=== PATIENT | male | born 1955 | race Caucasian/White ===

== ENCOUNTER 2019-12-14 14:11 | Emergency (ER) | payer OTHER ==
[2019-12-14 14:48] LABS: Absolute Lymphocytes (CBC) 1.1 K/uL (0.7-4.9); Basophils % 0.9 % (0-1.3); Hematocrit 45.7 % (39.6-49.0); MPV 8.6 fL (7.6-11.3)
[2019-12-14] MEDS ORDERED: NA CHLORIDE 0.9% 500 ML ONE (14:50)
[2019-12-14] MEDS ORDERED: ONDANSETRON 4 MG/2 ML VIAL ONE (14:50)
[2019-12-14] MEDS ORDERED: MECLIZINE HCL 12.5 MG TAB ONE (14:50)
[2019-12-14 15:10] LABS: BUN Blood Urea Nitrogen 11 mg/dL (7-18); Bicarbonate 26 mmol/L (21-32); Glucose Level 359 mg/dL (74-106); Sodium Level 137 mmol/L (136-145); Troponin (Emerg Dept Use Only) < 0.02 ng/mL (0.0-0.045)
--- NOTE | 2019-12-14 15:40 | RAD REPORT ---
EXAM DESCRIPTION: CT - Head Brain Wo Cont - 12/14/2019 3:07 pm CLINICAL HISTORY: DIZZINESS COMPARISON: No comparisons TECHNIQUE: Axial 5 mm thick images of the head were obtained without IV contrast. All CT scans are performed using dose optimization technique as appropriate and may include automated exposure control or mA/KV adjustment according to patient size. FINDINGS: No intracranial hemorrhage, mass, edema or shift of mid-line structures. No acute infarcti on changes seen. No cortical edema or sulcal effacement. Atrophy changes and chronic ischemic changes are minimal. Ventricles are normal. Arterial and physiologic calcifications are present. Mastoid air cells and visualized portions of the paranasal sinuses are clear. No acute bony findings. IMPRESSION: Negative non-contrast CT head examination for acute finding. Minimal atrophy and chronic ischemic change.
--- NOTE | 2019-12-14 16:20 | RAD REPORT ---
EXAM DESCRIPTION: CT - Neck Angio - 12/14/2019 3:52 pm CLINICAL HISTORY: dizziness TECHNIQUE: During dynamic enhancement using nonionic IV contrast, axial 2 mm thick images of the nec k were obtained. Sagittal and axial reconstruction images were generated using MIP technique and revi ewed. All CT scans are performed using dose optimization technique as appropriate and may include automated exposure control or mA/KV adjustment according to patient size. COMPARISON: CT head same date, CT angio head same date FINDINGS: No aneurysm or vascular malformation identified. No carotid artery dissection or signific ant luminal narrowing identified. Prominent carotid bulb calcifications are present without a signifi cant narrowing of the vessel lumen. Right vertebral artery is dominant with no dissection. The left vertebral artery is the nondominant vessel. This small size continues from origin to the C1 level. From the C1 transverse foramen to the skullbase wall of the vessel is thickened compared to th e right. This can be evidence for wall hematoma. From the skullbase to the base of the basilar artery the left vertebral artery is small and irregular. Termination at the posterior inferior cerebellar a rtery is possible. The wall changes of the distal vertebral artery are suspicious for dissection. No aortic arch or great vessel origin abnormality seen. No basilar artery abnormality seen. IMPRESSION: Suspected dissection of the distal left vertebral artery between the C1 level and the b ase of the basilar artery.
--- NOTE | 2019-12-14 16:24 | RAD REPORT ---
EXAM DESCRIPTION: CT - Head angio - 12/14/2019 3:52 pm CLINICAL HISTORY: DIZZINESS, vomiting, ordered TECHNIQUE: During dynamic enhancement using nonionic IV contrast, axial 1 millimeter thick images of the head were obtained. Sagittal and axial reconstruction images were generated using MIP technique and reviewed. All CT scans are performed using dose optimization technique as appropriate and may include automated exposure control or mA/KV adjustment according to patient size. COMPARISON: CT head same date FINDINGS: No aneurysm or vascular malformation identified. Major venous sinuses are patent. No stenosis, named branch occlusion, vasculitis or other significant carotid artery finding identifia ble. Both posterior communicating arteries are present as a normal variant. Carotid calcifications ar e present at bulb. This does not cause significant luminal narrowing. Left vertebral artery is narrowed along its entire course. This is the nondominant vessel. No right v ertebral artery dissection or focal abnormality. From the C1 level to the skullbase the left vertebra l artery wall is thickened which can be evidence of hematoma from dissection. Left vertebral artery i s poorly visualized between the skullbase and the base of the basilar artery. Left vertebral artery m ay terminate at the posterior inferior cerebellar artery. IMPRESSION: Thickened wall of the distal left vertebral artery suspicious for dissection.
--- NOTE | 2019-12-14 16:51 | ER ---
Nurse's Notes [facility] Name: Galdino Flores Age: 64 yrs Sex: Male : 1955 Arrival Date: 12/14/2019 Time: 14:13 Bed 7 Private MD: Srini Elizondo V Diagnosis: Vertigo;Vertebral Artery Dissection Presentation: 12/13 14:24 Chief complaint: Patient states: Brief episode of vomiting yesterday. Today, N/V ca1 started at 0700 and hasn't eased up. Haven't eaten anything today and now mostly dry heaving. Denies abdominal pain. Denies diarrhea. Coronavirus screen: Proceed with normal triage. Patient denies a cough. Patient denies shortness of breath or difficulty breathing. Patient denies measured and/or subjective temperature greater than 100.4F prior to today's visit. Patient denies travel on a cruise ship or to a country the [facility] currently lists as an affected area. Patient denies contact with known and/or suspected case of COVID-19. Ebola Screen: Patient negative for fever greater than or equal to 101.5 degrees Fahrenheit, and additional compatible Ebola Virus Disease symptoms Patient denies exposure to infectious person. Patient denies travel to an Ebola-affected area in the 21 days before illness onset. No symptoms or risks identified at this time. Initial Sepsis Screen: Does the patient meet any 2 criteria? No. Patient's initial sepsis screen is negative. Does the patient have a suspected source of infection? No. Patient's initial sepsis screen is negative. Risk Assessment: Do you want to hurt yourself or someone else? Patient reports no desire to harm self or others. Onset of symptoms was December 14, 2019 at 07:00. 14:24 Method Of Arrival: Wheelchair ca1 14:24 Acuity: GABY 3 ca1 Historical: - Allergies: 14:27 No Known Allergies; ca1 - PMHx: 14:27 Anxiety; DEAF ON LEFT; Diabetes - NIDDM; GERD; High Cholesterol; Hypertension; ca1 psoriatic spondylitis; - PSHx: 14:27 Hernia repair; LEFT EAR DRUM SURG; ca1 - Immunization history:: Adult Immunizations up to date, Pneumococcal vaccine is not up to date, Flu vaccine is up to date. - Social history:: Smoking status: Patient denies any tobacco usage or history of. - Family history:: not pertinent. - Hospitalizations: : No recent hospitalization is reported. Screenin:27 Abuse screen: Denies threats or abuse. Denies injuries from another. Nutritional ca1 screening: No deficits noted. Tuberculosis screening: No symptoms or risk factors identified. Fall Risk IV access (20 points). Assessment: 14:27 General: Appears in no apparent distress. comfortable, Behavior is calm, cooperative, ca1 appropriate for age. Pain: Denies pain. Neuro: Level of Consciousness is awake, alert, obeys commands, Oriented to person, place, time, situation, Appropriate for age Reports dizziness, since yesterday. Cardiovascular: Heart tones S1 S2 present Capillary refill < 3 seconds Patient's skin is warm and dry. Respiratory: Airway is patent Respiratory effort is even, unlabored, Respiratory pattern is regular, symmetrical, Breath sounds are clear bilaterally. GI: Abdomen is round obese, Bowel sounds present X 4 quads. Abd is soft and non tender X 4 quads. Reports nausea, vomiting, since this morning at 0700. : No signs and/or symptoms were reported regarding the genitourinary system. EENT: No signs and/or symptoms were reported regarding the EENT system. Derm: Skin is intact, is healthy with good turgor, Skin is moist, Skin is pink, Skin temperature is warm. Musculoskeletal: Circulation, motion, and sensation intact. Capillary refill < 3 seconds. 15:47 Reassessment: Pt in CT. ca1 16:04 Reassessment: [phone]. ca1 16:06 Reassessment: Patient appears in no apparent distress at this time. Patient and/or ca1 family updated on plan of care and expected duration. Pain level reassessed. Patient is alert, oriented x 3, equal unlabored respirations, skin warm/dry/pink. Denies N/V at this time states, "but still a little dizzy" Patient states feeling better. 16:25 Reassessment: Dr. Asher at bedside discussing result of CT neck and plan of care. ca1 16:53 Reassessment: Patient appears in no apparent distress at this time. Patient is alert, ca1 oriented x 3, equal unlabored respirations, skin warm/dry/pink. 17:31 Reassessment: Patient appears in no apparent distress at this time. Patient is alert, ca1 oriented x 3, equal unlabored respirations, skin warm/dry/pink. Called for report. Report given to RALPH Navarro at [facility]. Vital Signs: 14:24 BP 165 / 79; Pulse 67; Resp 17 S; Temp 97.5(O); Pulse Ox 96% on R/A; Weight 115.67 kg ca1 (R); Height 5 ft. 9 in. (175.26 cm) (R); Pain 0/10; 16:08 BP 143 / 82; Pulse 63; Resp 17 S; Pulse Ox 96% on R/A; ca1 16:53 BP 134 / 76; Pulse 61; Resp 16; Pulse Ox 97% on R/A; ca1 17:31 BP 142 / 76; Pulse 63; Resp 18 S; Pulse Ox 96% on R/A; ca1 14:24 Body Mass Index 37.66 (115.67 kg, 175.26 cm) ca1 ED Course: 14:13 Patient arrived in ED. ag5 14:13 Srini Elizondo MD is Private Physician. ag5 14:20 Meño Asher MD is Attending Physician. rn 14:24 Chantal Rudd RN is Primary Nurse. ca1 14:25 Patient has correct armband on for positive identification. Bed in low position. Call jp3 light in reach. Side rails up X 1. Side rails up X2. Verbal reassurance given. Pulse ox on. NIBP on. 14:25 Patient maintains SpO2 saturation greater than 95% on room air. jp3 14:26 Triage completed. ca1 14:27 Arm band placed on right wrist. ca1 14:27 No provider procedures requiring assistance completed. ca1 14:41 Initial lab(s) drawn, by me, sent to lab. Inserted saline lock: 20 gauge in right ca1 antecubital area, using aseptic technique. Blood collected. 14:54 EKG done, by ED staff, reviewed by Meño Asher MD. ca1 15:07 CT completed. Patient tolerated procedure well. Patient moved back from CT. mw3 15:07 CT Head Brain wo Cont In Process Unspecified. EDMS 15:52 CT Head Angio In Process Unspecified. EDMS 15:53 CT Neck Angio In Process Unspecified. EDMS 15:53 CT completed. Patient tolerated procedure well. Patient moved back from CT. bq 17:54 Patient transferred, IV remains in place. ca1 Administered Medications: 14:45 Drug: NS 0.9% 500 ml Route: IV; Rate: bolus; Site: right antecubital; ca1 15:15 Follow up: Response: No adverse reaction; IV Status: Completed infusion ca1 14:46 Drug: Zofran (Ondansetron) 4 mg Route: IVP; Site: right antecubital; ca1 15:30 Follow up: Response: No adverse reaction; Nausea is decreased; Vomiting decreased ca1 14:54 Drug: Meclizine 50 mg Route: PO; ca1 15:30 Follow up: Response: No adverse reaction; Marked relief of symptoms ca1 16:51 Drug: Aspirin 325 mg Route: PO; ca1 17:33 Follow up: Response: No adverse reaction ca1 Outcome: 16:50 ER care complete, transfer ordered by . rn 17:54 Transferred by ground EMS to [facility]. ca1 17:54 Condition: stable 17:54 Instructed on the need for transfer. 18:04 Patient left the ED. ca1 Signatures: Dispatcher [employer] EDMS Monica Hartmann Roman, MD MD rn Willis, Michelle mw3 Austyn Culver jp3 Chanatl Rudd RN RN ca1 Humza, Sophie ag5 Corrections: (The following items were deleted from the chart) 14:29 14:27 Neuro: Level of Consciousness is awake, alert, obeys commands, Oriented to ca1 person, place, time, situation, Appropriate for age ca1 15:43 15:42 Reassessment: Patient appears in no apparent distress at this time. Patient ca1 and/or family updated on plan of care and expected duration. Pain level reassessed. Patient is alert, oriented x 3, equal unlabored respirations, skin warm/dry/pink. ca1
--- NOTE | 2019-12-14 16:51 | EDPHYS ---
Physician Documentation [facility] Name: Galdino Flores Age: 64 yrs Sex: Male : 1955 Arrival Date: 12/14/2019 Time: 14:13 Bed 7 Private MD: Srini Elizondo V ED Physician Mñeo Asehr HPI: 12/13 15:05 This 64 yrs old Male presents to ER via Wheelchair with complaints of rn Vertigo, Nausea. 15:05 The patient presents with dizziness, vertigo. Onset: The symptoms/episode rn began/occurred yesterday. Modifying factors: The symptoms are alleviated by nothing, the symptoms are aggravated by movement of head, standing up. Severity of symptoms: At their worst the symptoms were moderate in the emergency department the symptoms are unchanged. The patient has not experienced similar symptoms in the past. The patient has not recently seen a physician. Reports dizziness began yesterday morning, felt better, happened again this morning around 0700. Worse with head movement, assoc with nausea, has never happened before. No other neurological complaints. No chest pain, sob/abd pain/diarrhea. . Historical: - Allergies: 14:27 No Known Allergies; ca1 - PMHx: 14:27 Anxiety; DEAF ON LEFT; Diabetes - NIDDM; GERD; High Cholesterol; Hypertension; ca1 psoriatic spondylitis; - PSHx: 14:27 Hernia repair; LEFT EAR DRUM SURG; ca1 - Immunization history:: Adult Immunizations up to date, Pneumococcal vaccine is not up to date, Flu vaccine is up to date. - Social history:: Smoking status: Patient denies any tobacco usage or history of. - Family history:: not pertinent. - Hospitalizations: : No recent hospitalization is reported. ROS: 15:05 Constitutional: Negative for fever, chills, and weight loss, Eyes: Negative for injury, rn pain, redness, and discharge, Neck: Negative for injury, pain, and swelling, Cardiovascular: Negative for chest pain, palpitations, and edema, Respiratory: Negative for shortness of breath, cough, wheezing, and pleuritic chest pain, Abdomen/GI: Negative for abdominal pain, diarrhea, and constipation, MS/Extremity: Negative for injury and deformity, Skin: Negative for injury, rash, and discoloration, Neuro: Negative for headache, numbness, tingling, and seizure. Exam: 14:54 ECG was reviewed by the Attending Physician. rn 15:05 Constitutional: This is a well developed, well nourished patient who is awake, alert, rn eyes closed, laying still Head/Face: Normocephalic, atraumatic. Eyes: Pupils equal round and reactive to light, extra-ocular motions intact. Lids and lashes normal. Conjunctiva and sclera are non-icteric and not injected. Cornea within normal limits. Periorbital areas with no swelling, redness, or edema. ENT: MMM Cardiovascular: Regular rate and rhythm. No pulse deficits. Respiratory: No increased work of breathing, no retractions or nasal flaring. Abdomen/GI: soft, non-tender MS/ Extremity: Pulses equal, no cyanosis. Neurovascular intact. Full, normal range of motion. Equal circumference. Neuro: Awake and alert, GCS 15, oriented to person, place, time, and situation. Cranial nerves II-XII grossly intact. Motor strength 5/5 in all extremities. Sensory grossly intact. Cerebellar exam normal. Vital Signs: 14:24 BP 165 / 79; Pulse 67; Resp 17 S; Temp 97.5(O); Pulse Ox 96% on R/A; Weight 115.67 kg ca1 (R); Height 5 ft. 9 in. (175.26 cm) (R); Pain 0/10; 16:08 BP 143 / 82; Pulse 63; Resp 17 S; Pulse Ox 96% on R/A; ca1 16:53 BP 134 / 76; Pulse 61; Resp 16; Pulse Ox 97% on R/A; ca1 17:31 BP 142 / 76; Pulse 63; Resp 18 S; Pulse Ox 96% on R/A; ca1 14:24 Body Mass Index 37.66 (115.67 kg, 175.26 cm) ca1 MDM: 14:20 Patient medically screened. rn 16:46 Differential diagnosis: cardiac arrhythmia, TIA, vertigo, vertebral dissection, rn aneurysm, SAH. Data reviewed: vital signs, nurses notes, lab test result(s), EKG, radiologic studies, CT scan, and as a result, I will admit patient. Counseling: I had a detailed discussion with the patient and/or guardian regarding: the historical points, exam findings, and any diagnostic results supporting the discharge/admit diagnosis, lab results, radiology results, the need to transfer to another facility, for higher level of care, [facility] does not immediately have the required specialist. Response to treatment: the patient's symptoms have mildly improved after treatment, and as a result, I will admit patient. Admission orders: after a detailed discussion of the patient's condition and case, the admit orders are written by me. ED course: Accepted for transfer to [facility] in [place] for neuro consult, MRI/MRA, spoke with Dr. Corado who recommends aspirin for now and they will eval for further need of stronger anticoagulation.. 12/13 14:38 Order name: CBC with Diff; Complete Time: 15:14 rn 12/13 14:38 Order name: Basic Metabolic Panel; Complete Time: 15:14 rn 12/13 14:38 Order name: Troponin (emerg Dept Use Only); Complete Time: 15:14 rn 12/13 14:38 Order name: CT Head Brain wo Cont; Complete Time: 16:02 rn 12/13 15:26 Order name: CT Head Angio; Complete Time: 16:30 rn 12/13 15:26 Order name: CT Neck Angio; Complete Time: 16:30 rn 12/13 14:38 Order name: IV Start; Complete Time: 14:42 rn 12/13 14:38 Order name: EKG; Complete Time: 14:39 rn 12/13 14:38 Order name: EKG - Nurse/Tech; Complete Time: 14:54 rn EC:54 Rate is 59 beats/min. Rhythm is regular. QRS Nathalie is Normal. MN interval is normal. QRS rn interval is normal. QT interval is normal. No Q waves. T waves are Normal. No ST changes noted. Clinical impression: Sinus bradycardia. Interpreted by me. Reviewed by me. Administered Medications: 14:45 Drug: NS 0.9% 500 ml Route: IV; Rate: bolus; Site: right antecubital; ca1 15:15 Follow up: Response: No adverse reaction; IV Status: Completed infusion ca1 14:46 Drug: Zofran (Ondansetron) 4 mg Route: IVP; Site: right antecubital; ca1 15:30 Follow up: Response: No adverse reaction; Nausea is decreased; Vomiting decreased ca1 14:54 Drug: Meclizine 50 mg Route: PO; ca1 15:30 Follow up: Response: No adverse reaction; Marked relief of symptoms ca1 16:51 Drug: Aspirin 325 mg Route: PO; ca1 17:33 Follow up: Response: No adverse reaction ca1 Disposition: 12/14/19 16:50 Transfer ordered to [facility]. Diagnosis are Vertigo, Vertebral Artery Dissection. - Reason for transfer: Higher level of care. - Accepting physician is Dr. Hyde. - Condition is Stable. - Problem is new. - Symptoms have improved. Signatures: Dispatcher [employer] EDMS Meño Asher MD MD rn AcobChantal RN RN ca1 Corrections: (The following items were deleted from the chart) 16:54 16:50 12/14/2019 16:50 Transfer ordered to [facility]. rn Diagnosis is Vertigo; Vertebral Artery Dissection. Reason for transfer: Higher level of care. Accepting physician is . Condition is Stable. Problem is new. Symptoms have improved. rn 18:04 16:54 12/14/2019 16:50 Transfer ordered to [facility]. ca1 Diagnosis is Vertigo; Vertebral Artery Dissection. Reason for transfer: Higher level of care. Accepting physician is Dr. Hyde. Condition is Stable. Problem is new. Symptoms have improved. rn
[2019-12-14] MEDS ORDERED: ASPIRIN 325 MG TAB ONE (16:55)
[2019-12-14 18:10] VITALS: TEMP 97.5
[2019-12-14 18:14] VITALS: BP 142/76; O2SAT 96
--- NOTE | 2019-12-15 16:24 | EKG ---
Test Date: 2019-12-14 Test Time: 14:49:10 [employer] Milling Machine Operator: MARAH MEASUREMENT RESULTS: Intervals: Rate: 59 NM: 208 QRSD: 100 QT: 464 QTc: 459 [place]: P: 46 NM: 208 QRS: 33 T: 18 INTERPRETIVE STATEMENTS: Sinus bradycardia Otherwise normal ECG Compared to ECG 06/04/2016 10:23:41 No significant changes Electronically Signed On 12-15-19 16:22:27 CDT by Joel Agarwal
== END 2019-12-14 18:04 | disposition short-term general hospital (02) ==
LOC: ER 14:11
DX: I77.74 Dissection of vertebral artery (principal); R11.0 Nausea; I10 Essential (primary) hypertension
CPT/HCPCS: 93005; 85025; 80048; 36415; 84484; 70450; 70496; 70498; Q9967; J7040; J2405; 96374; 99285; J8597

== ENCOUNTER 2021-08-13 04:42 | Emergency (ER) | payer OTHER ==
--- OUTSIDE RECORDS SUMMARY | 2021-08-13 04:46 | XMS REPORT | Continuity of Care Document ---
:1955 Author Organization [facility] t Address [address] [place] [address] Care Team Providers Name Role Phone Mikhail White Primary Care Physician Erica ANGELO Attending Clinician Unavailable Erica Angelo MD Attending Clinician Nils BROOKS Attending Clinician Unavailable Elizabeth CAI Attending Clinician Unavailable Nils WU Admitting Clinician Unavailable Payers Payer Name Policy Type Policy Number Effective Date Expiration Date S ource Problems Condition Condition Condition Status Onset Resolution Last Treating Co mments Source Name Details Category Date Date Treatment Clinician Date No known No known Disease Unive rs active active ity of problems problems [facility] Allergies, Adverse Reactions, Alerts Allergy Allergy Status Severity Reaction(s) Onset Inactive Treating Comm ents Source Name Type Date Date Clinician NO KNOWN Allergy Active [facility] NO KNOWN Drug Active Univers ALLERGIE Class ity of S [place] [facility] [place] Social History Social Habit Start Date Stop Date Quantity Comments Source History SDOH University o f Alcohol Std [place] [facility] History SDOH University o f Alcohol Binge [place] [facility] History SDOH University o f Alcohol Comment [place] [facility] Exposure to Not sure University of SARS-CoV-2 [place] [facility] (event) Branch Alcohol intake 2021-03-21 2021-03-21 Lifetime University of 00:00:00 00:00:00 non-drinker [facility] (finding) Branch Tobacco use and 2020-12-01 2020-12-01 Never used Universit y of exposure 00:00:00 00:00:00 [place] [facility] History SDOH 2020-12-01 2020-12-01 1 University o f Alcohol Frequency 00:00:00 00:00:00 [facility] [place] Sex Ass[birth year] At [birth year] Universit y of 00:00:00 00:00:00 [facility] Smoking Status Start Date Stop Date Source Never smoker [facility] Medications Ordered Filled Start Stop Current Ordering Indication Dosage Frequency Signature Comments Components Source Medication Medication Date Date Medication? Clinician (SIG) Name Name apremilast Yes Take by Uni vers (OTEZLA) 30 6-11 mouth. ity of mg tablet 08:40: [place] 26 [facility] Branch sulfaSALAzi 0 Yes 500mg Take 500 U nivers ne 500 mg 6-11 mg by ity of EC tablet 08:38: mouth. [place] 53 Medical Branch LOVAZA, 0 Yes 1g Take 1 g Univer s omega-3-aci 6-11 by mouth. ity of d ethyl 08:38: [facility], 53 Medical gram Branch capsule lisinopriL Yes 40mg Take 40 mg U nivers 40 mg 6-11 by mouth. ity of tablet 08:38: [address] Branch hydrOXYchlo Yes Take by Un jose carlos roQUINE 200 6-11 mouth. ity of mg tablet 08:38: [address] Branch XARELTO 20 0 Yes Univers mg tablet 5-20 ity of 00:00: [place] 00 [facility] Branch Azelastine Yes Univers 205.5 mcg 5-20 ity of (0.15 %) 00:00: [place] nasal spray 00 [facility] Branch VASCEPA 1 Yes TAKE 2 Univer s gram 4-13 CAPSULES ity of capsule 00:00: TWICE A [place] DAY WITH Medical MEALS Branch amLODIPine 0 Yes 10mg Take 10 mg U nivers 10 mg 3-31 by mouth. ity of tablet 13:21: [place] 03 Medical Branch fenofibrate 2020-0 Yes 145mg Take 145 U nivers 145 mg 3-31 mg by ity of tablet 13:21: mouth. [place] [facility] metoprolol 0 Yes 200mg Take 200 Un jose carlos succinate 3-31 mg by ity of XL 200 mg 13:21: mouth. [place] 24 Medical tablet Branch SIMPONI 50 2020-0 Yes Univers mg/0.5 mL 3-29 ity of Syrg 00:00: 00 Medical Branch celecoxib Yes Univers 200 mg 3-25 ity of capsule 00:00: Medical Branch glimepiride Yes TAKE 1 Univ ers 4 mg tablet 3-09 TABLET BY ity of 00:00: MOUTH EVERY DAY. Medical STOP Branch JARDIANCE JANUMET Yes 1{tbl} Take 1 Univer s 50-1,000 mg 3-09 tablet by ity of per tablet 00:00: [place] (two[place] Medical times Branch daily with meals. tadalafiL Yes TAKE 1 Univer s 20 mg 3-09 TABLET BY ity of tablet 00:00: MOUTH EVERY DAY Medical NEEDED Branch rosuvastati Yes 40mg Take 40 mg Univers n 40 mg 4-20 by mouth. ity of tablet 00:00: [place] [facility] Vital Signs Vital Name Observation Time Observation Value Comments Source Systolic blood 2021-03-21 19:47:00 149 mm[Hg] Univer sity [facility] Diastolic blood 2021-03-21 19:47:00 79 mm[Hg] Unive rsity [facility] Heart rate 2021-03-21 19:47:00 77 /min [facility] Body height 2021-03-21 19:41:00 175.3 cm [facility] Body weight 2021-03-21 19:41:00 113.399 kg [facility] BMI 2021-03-21 19:41:00 36.92 kg/m2 [facility] Procedures This patient has no known procedures. Encounters Start End Encounter Admission Attending Care Care Encounter Source Date/Time Date/Time Type Type Clinicians Facility Department ID 2019-12-14 Inpatient SLE SLE [id number] SLE 19:05:00 [id number] 2021-03-21 2021-03-21 Outpatient PETEY [facility] [id number] Univers 15:45:00 15:45:00 LIVIER [id number] ity [facility] 2021-03-21 2021-03-21 Outpatient R PETEY [facility] [id number] Univers 15:45:00 15:45:00 LIVIER solis [facility] 2021-03-21 2021-03-21 [email or web address] [id number] [id number] Univers 14:39:52 15:06:43 Visit Livier Maldonado [facility] [id number] it y of SURGICAL [id number] Vinod as SPECIALTI [phone] Me dical ES 198 Branch WILLIS 2021-02-23 2021-02-23 Outpatient Genevieve BROOKS [facility] [id number] Univers 14:00:00 14:00:00 PANKAJ [id number] timur [facility] 2021-02-23 2021-02-23 Outpatient Genevieve BROOKS [facility] [id number] Univers 14:00:00 14:00:00 PANKAJ timur [facility] 2021-02-09 2021-02-09 [facility] [id number] Univers 00:00:00 00:00:00 LIVIER will [facility] 2021-02-04 2021-02-04 [facility] [id number] Univers 10:30:00 10:30:00 LIVIER [id number] [facility] 2021-02-04 2021-02-04 Outpatient R PETEY [facility] [id number] Univers 10:30:00 10:30:00 LIVIER orellanatimur [facility] 2020-12-16 2020-12-16 Outpatient PETEY [facility] [id number] Univers 09:45:00 09:45:00 LIVIER [id number] [facility] 2020-12-16 2020-12-16 Outpatient R PETEY [facility] [id number] Univers 09:45:00 09:45:00 LIVIER orellanatimur [facility] 2020-12-15 2020-12-15 Outpatient PETEY [facility] [id number] Univers 09:00:00 09:00:00 LIVIER [id number] [facility] 2020-12-15 2020-12-15 Outpatient R PETEY [facility] [id number] Univers 00:00:00 00:00:00 LIVIER [facility] 2020-12-01 2020-12-01 Outpatient Genevieve ANGELO [facility] [id number] Univers 15:00:00 15:00:00 LIVIER [id number] [facility] 2020-12-01 2020-12-01 Outpatient Genevieve ANGELO [facility] [id number] Univers 15:00:00 15:00:00 LIVIER [facility] 2020-11-24 2020-11-24 Outpatient Genevieve ANGELO [facility] [id number] Univers 15:30:00 15:30:00 LIVIER [id number] [facility] 2020-11-24 2020-11-24 Outpatient Genevieve ANGELO [facility] [id number] Univers 13:15:00 13:15:00 [facility] Results Test Description Test Time Test Comments Results Result Comments Source RPR 2019-12-16 10:30:00 Test Item Value Reference Range Interpretation Comme nts RPR SCREEN (ELSIEAKER) (test code = 420) Nonreactive Nonreactive POCT-GLUCOSE [id number] 12:46:00 Test Item Value Reference Range Interpretation Comments POC-GLUCOSE METER 302 mg/dL 70-110 H : TESTED A T [facility] 6720 (BEAKER) (test code = [facility], 153) [id number]: Ink Blender/Techni briana ID = [id number] for DAVINA TABARES POCT-GLUCOSE [id number] 10:41:00 Test Item Value Reference Range Interpretation Comments POC-GLUCOSE METER 310 mg/dL 70-110 H : TESTED A T [facility] 6720 (BEAKER) (test code = [facility], 153) [id number]: Ink Blender/Techni briana ID = [id number] for GREGG KEITH HEMOGLOBIN [id number] 08:27:00 Test Item Value Reference Range Interpretation Comments HEMOGLOBIN A1C (BEAKER) (test code = 10.2 % 4.3-6.1 H 368) VITAMIN B12 AND [id number] 07:44:00 Test Item Value Reference Range Interpretation Comments VITAMIN B12 (BEAKER) (test code = 1763 pg/mL 213-816 H 774) FOLATE (BEAKER) (test code = 362) 14.90 ng/mL >=7.00 Ink Blender ID - LUCIO [id number] 06:32:00 Test Item Value Reference Range Interpretation Comments MAGNESIUM (BEAKER) (test code = 1.7 mg/dL 1.6-2.6 627) Ink Blender ID - PIMEG LBASIC METABOLIC [id number] 06:32:00 Test Item Value Reference Range Interpretation Comments SODIUM (BEAKER) 136 meq/L 136-145 (test code = 381) POTASSIUM (BEAKER) 4.0 meq/L 3.5-5.1 (test code = 379) CHLORIDE (BEAKER) 100 meq/L 98-107 (test code = 382) CO2 (BEAKER) (test 27 meq/L 22-29 code = 355) BLOOD UREA NITROGEN 13 mg/dL 7-21 (BEAKER) (test code = 354) CREATININE (BEAKER) 0.89 mg/dL 0.57-1.25 (test code = 358) GLUCOSE RANDOM 310 mg/dL 70-105 H (BEAKER) (test code = 652) CALCIUM (BEAKER) 8.9 mg/dL 8.4-10.2 (test code = 697) EGFR (BEAKER) (test 86 mL/min/1.73 ESTIMA DARNELL GFR IS code = 1092) sq m NOT ACCURATE CREATININE CLEARANCE IN PREDICTING GLOMERULAR FILTRATION RATE . ESTIMATED GFR I S NOT APPLICABLE FOR DIALYSIS PATIEN TS. Ink Blender ID - LUCIO LC-REACTIVE [id number] 06:32:00 Test Item Value Reference Range Interpretation Comments C-REACTIVE PROTEIN (BEAKER) (test 0.31 mg/dL 0.00-0.50 code = 676) Ink Blender ID - PIMEG LTSH/FREE T4 IF [id number] 06:27:00 Test Item Value Reference Range Interpretation Comments THYROID STIMULATING HORMONE 1.017 uIU/mL 0.350-4.940 (BEAKER) (test code = 772) Ink Blender ID - PIMEG LHIV-1 ANTIGEN WITH HIV-1/2 [id number] 06:27:00 Test Item Value Reference Range Interpretation Comments HIV-1 ANTIGEN WITH HIV 1\T\2 Nonreactive Nonreactive ANTIBODY (2) (BEAKER) (test code = 2586) Ink Blender ID - PIMEG LTROPONIN [id number] 06:04:00 Test Item Value Reference Range Interpretation Comments TROPONIN I (BEAKER) (test code = 0.01 ng/mL 0.00-0.03 397) Troponin I (TnI) levels must be interpreted in the context of the presenting symptoms and the clinical findings. Elevated TnI levels indicate myocardial damage, but are not specific for ischemic heart disease. Elevated TnI levels are seen in patients with other cardiac conditions (including myocarditis and congestive heart failure), and slight TnI elevations occur in patients with other conditions, including sepsis, renal failure, acidosis, acute neurological disease, and persistent tachyarrhythmia.Ink Blender ID - LUCIO LCBC (HEMOGRAM ONLY) 2019-12-15 05:41:00 Test Item Value Reference Range Interpretation Comments WHITE BLOOD CELL COUNT (BEAKER) 7.9 K/ L 3.5-10.5 (test code = 775) RED BLOOD CELL COUNT (BEAKER) 4.60 M/ L 4.63-6.08 L (test code = 761) HEMOGLOBIN (BEAKER) (test code = 14.8 GM/DL 13.7-17.5 410) HEMATOCRIT (BEAKER) (test code = 41.9 % 40.1-51.0 411) MEAN CORPUSCULAR VOLUME (BEAKER) 91.1 fL 79.0-92.2 (test code = 753) MEAN CORPUSCULAR HEMOGLOBIN 32.2 pg 25.7-32.2 (BEAKER) (test code = 751) MEAN CORPUSCULAR HEMOGLOBIN CONC 35.3 GM/DL 32.3-36.5 (BEAKER) (test code = 752) RED CELL DISTRIBUTION WIDTH 11.6 % 11.6-14.4 (BEAKER) (test code = 412) PLATELET COUNT (BEAKER) (test 144 K/CU MM 150-450 L code = 756) MEAN PLATELET VOLUME (BEAKER) 10.1 fL 9.4-12.4 (test code = 754) NUCLEATED RED BLOOD CELLS 0 /100 WBC 0-0 (BEAKER) (test code = 413) MR, BRAIN, WITHOUT [id number] 02:16:00Reason for exam:->Ischemic Stroke EvaluationReason for exam:->DISSECTION PROTOCOLFINAL REPORT EXAM: MR, MRA, NECK, WITHOUT IV CONTRAST, MR, BRAIN, WITHOUT CONT RAST, MR, MRA, BRAIN, WITHOUT CONTRAST, MR, ORBIT, FACE, NECK, WITHOUT CONTRAST CLINICAL INDICATION:Vertebral artery dissection and stroke. TECHNIQUE: Sagittal and coronal T1-w and axial T2-w, FLAIR, GRE, and diffusion-w images of the brain with ADC maps. 2D wuui-dr-qjdzuf MRA of the neck. 3D rdap-zp-nszoum MRA of the head. Source data and maximum intensity projections (MIPs) were reviewed. Axial T1 fat-sat, axial T1, coronal T1 fat-sat, axial STIR, and coronal STIR MRI of the neck without contrast. COMPARISON: None. FINDINGS: MRI BRAIN:Parenchyma: No infarction on DWI. No hemorrhage. No mass or mass effect. Extra-axial Collection: None Ventricular System: Normal Major Intracranial Flow Voids: Normal Osseous Structures: Expected marrow signal. Included Orbits: Normal Paranasal Sinuses: Predominantly clear Tympanomastoid Cavities: Normal MRA HEAD:Anterior Circulation:Right intracranial internal carotid artery (ICA): NormalRight anterior cerebral artery (CAMILA): NormalRight middle cerebral artery (MCA): Normal Left intracranial internal carotid artery (ICA): NormalLeft anterior cerebral artery (CAMILA): NormalLeft middle cerebral artery (MCA): Normal Anterior communicating artery (AComm): PresentPosterior communicating arteries (PComm): Present bilaterally. Posterior Circulation:Rightposterior cerebral artery (ELECTROCARDIOGRAPHIC TECHNICIAN): NormalLeft posterior cerebral artery (ELECTROCARDIOGRAPHIC TECHNICIAN): Normal Right vertebral artery (VA): NormalLeft vertebral artery (VA): Left vertebral artery is diffusely diminutive taperingto nonopacification at the V3 segment with intermittent signal within the left V4 segment. Intimal flap is suspected at the left V2 segment at the level of C1. The left PICA is patent.Basilar artery (BA ): Normal Other: Normal MRA NECK: Right carotid arterial system: Normal. Left carotid arterial system: Normal. Right vertebral artery: NormalLeft vertebral artery: Left vertebral artery is diffusely diminutive tapering to nonopacification at the V3 segment with intermittent signal within theleft V4 segment. Intimal flap is suspected at the left V2 segment at the level of C1. The left PICA is patent. Where applicable, evaluation of internal carotid artery (ICA) stenosis was performed using NASCET-like criteria, where the site of greatest stenosis is compared to the diameter of the ICA distal to the stenosis at a point where the ICA ha become parallel. MRI NECK:Diffusely diminutive left V1 and left V2 segments with intimal flap suspected at the C1 level correlating to MRA. Soft tissues of the neck are unremarkable. Unremarkable lung apices. IMPRESSION: 1. No acute intracranial infarction, hemorrhage, or mass.2. Nonopacification of the left vertebral artery extending from the distalleft V2 segment to the basilar junction of the left V4 segment suspicious for occluding dissection with intimal flap suspected at the level of C1. The left PICA is patent. This could be better evaluated with CTA, as clinically indicated. Signed: Neville Mei MDReport Verified Date/Time: 12/15/2019 02:16:06 MR, MRA, BRAIN, WITHOUT [id number] 02:16:00Patient last known well 05:00 12/14/2019Acute onset dizziness with nausea and vomiting, clockwise room- spinningCTH without infarction/ hemorrhageCTA Head and Neck with diminuitive left vertebral artery and concern for large dissectionReason for exam:- >Ischemic Stroke EvaluationReason for exam:->DISSECTION PROTOCOLFINAL REPORT EXAM: MR, MRA, NECK, WITHOUT IV CONTRAST, MR, BRAIN, WITHOUT CONTRAST, MR, MRA, BRAIN, WITHOUT CONTRAST, MR, ORBIT, FACE, NECK, WITHOUT CONTRAST CLINICAL INDICATION:Vertebral artery dissection and stroke. TECHNIQUE: Sagittal and coronal T1-w and axial T2-w, FLAIR, GRE, and diffusion-w images of the brain with ADC maps. 2D mntg-qf-jdijah MRA of the neck. 3D zwvo-aj-uqrfxx MRA of the head. Source data and maximum intensity projections (MIPs) were reviewed. Axial T1 fat-sat, axial T1, coronal T1 fat- sat, axial STIR, and coronal STIR MRI of the neck without contrast. COMPARISON: None. FINDINGS: MRI BRAIN:Parenchyma: No infarction on DWI. No hemorrhage. No mass or mass effect. Extra-axial Collection: None Ventricular System: Normal Major Intracranial Flow Voids: Normal Osseous Structures: Expected marrow signal. Included Orbits: Normal Paranasal Sinuses: Predominantly clear Tympanomastoid Cavities: Normal MRA HEAD:Anterior Circulation:Right intracrani al internal carotid artery (ICA): NormalRight anterior cerebral artery (CAMILA): NormalRight middle cerebral artery (MCA): Normal Left intracranial internal carotid artery (ICA): NormalLeft anterior cerebral artery (CAMILA): NormalLeft middle cerebral artery (MCA): Normal Anterior communicating artery (AComm): PresentPosterior communicating arteries (PComm): Present bilaterally. Posterior Circulation:Rightposterior cerebral artery (ELECTROCARDIOGRAPHIC TECHNICIAN): NormalLeft posterior cerebral artery (ELECTROCARDIOGRAPHIC TECHNICIAN): Normal Right vertebral artery (VA): NormalLeft vertebral artery (VA): Left vertebral artery is diffusely diminutive taperingto nonopacification at the V3 segment with intermittent signal within the left V4 segment. Intimal flap is suspected at the left V2 segment at the level of C1. The left PICA is patent.Basilar artery (BA): Normal Other: Normal MRA NECK: Right carotid arterial system: Normal. Left carotid arterial system: Normal. Right vertebral artery: NormalLeft vertebral artery: Left vertebral artery is dif fusely diminutive tapering to nonopacification at the V3 segment with intermittent signal within theleft V4 segment. Intimal flap is suspected at the left V2 segment at the level of C1. The left PICA is patent. Where applicable, evaluation of internal carotid artery (ICA) stenosis was performed using NASCET-like criteria, where the site of greatest stenosis is compared to the diameter of the ICA distal to the stenosis at a point where the ICA ha become parallel. MRI NECK:Diffusely diminutive left V1 and left V2 segments with intimal flap suspected at the C1 level correlating to MRA. Soft tissues of the neck are unremarkable. Unremarkable lung apices. IMPRESSION: 1. No acute intracranial infarction, hemorrhage, or mass.2. Nonopacification of the left vertebral artery extending from the distalleft V2 segment to the basilar junction of the left V4 segment suspicious for occluding dissection with intimal flap suspected at the level of C1. The left PICA is patent. This could be better evaluated with CTA, as clinically indicated. Signed: Neville Mei MDRort Verified Date/Time: 12/15/2019 02:16:06 MR, MRA, NECK, WITHOUT IV CONTRAST 2019-12-15 02:16:00Reason for exam:->Ischemic Stroke EvaluationReason for exam:->DISSECTION PROTOCOLFINAL REPORT EXAM: MR, MRA, NECK, WITHOUT IV CONTRAST, MR, BRAIN, WITHOUT CONTRAST, MR, MRA, BRAIN, WITHOUT CONTRAST, MR, ORBIT, FACE, NECK, WITHOUT CONTRAST CLINICAL INDICATION:Vertebral artery dissection and stroke. TECHNIQUE: Sagittal and coronal T1-w and axial T2-w, FLAIR, GRE, and diffusion-w images of the brain with ADC maps. 2D njtm-cd-wkspdh MRA of the neck. 3D koqw-ia-uhfkcv MRA of the head. Source data and maximum intensity projections (MIPs) were reviewed. Axial T1 fat-sat, axial T1, coronal T1 fat-sat, axial STIR, and coronal STIR MRI of the neck without contrast. COMPARISON: None. FINDINGS: MRI BRAIN:Parenchyma: No infarction on DWI. No hemorrhage. No mass or mass effect. Extra-axial Collection: None Ventricular System: Normal Major Intracranial Flow Voids: Normal Osseous Structures: Expected marrow signal. Included Orbits: Normal Paranasal Sinuses: Predominantly clear Tympanomastoid Cavities: Normal MRA HEAD:Anterior Circulation:Right intracranial internal carotid artery (ICA): NormalRight anterior cerebral artery (CAMILA): NormalRight middle cerebral artery (MCA): Normal Left intracranial internal carotid artery (ICA): NormalLeft anterior cerebral artery (CAMILA): NormalLeft middle cerebral artery (MCA): Normal Anterior communicating artery (AComm): PresentPosterior communicating arteries (PComm): Present bilaterally. Posterior Circulation:Rightposterior cerebral artery (ELECTROCARDIOGRAPHIC TECHNICIAN): NormalLeft posterior cerebral artery (ELECTROCARDIOGRAPHIC TECHNICIAN): Normal Right vertebral artery (VA): NormalLeft vertebral artery (VA): Left vertebral artery is diffusely diminutive taperingto nonopacification at the V3 segment with intermittent signal within the left V4 segment. Intimal flap is suspected at the left V2 segment at the level of C1. The left PICA is patent.Basilar artery (BA): Normal Other: Normal MRA NECK: Right carotid arterial system: Normal. Left carotid arterial s ystem: Normal. Right vertebral artery: NormalLeft vertebral artery: Left vertebral artery is diffusely diminutive tapering to nonopacification at the V3 segment with intermittent signal within theleft V4 segment. Intimal flap is suspected at the left V2 segment at the level of C1. The left PICA is patent. Where applicable, evaluation of internal carotid artery (ICA) stenosis was performed using NASCET-like criteria, where the site of greatest stenosis is compared to the diameter of the ICA distal to the stenosis at a point where the ICA ha become parallel. MRI NECK:Diffusely diminutive left V1 and left V2 segments with intimal flap suspected at the C1 level correlating to MRA. Soft tissues of the neck are unremarkable. Unremarkable lung apices. IMPRESSION: 1. No acute intracranial infarction, hemorrhage, or mass.2. Nonopacification of the left vertebral artery extending from the distalleft V2 segment to the basilar junction of the left V4 segment suspicious for occluding dissection with intimal flap suspected at the level of C1. The left PICA is patent. This could be better evaluated with CTA, as clinically indicated. Signed: Neville Mei MDReport Verified Date/Time: 12/15/2019 02:16:06 MR, ORBIT, FACE, NECK, WITHOUT [id number] 02:16:00FINAL REPORT EXAM: MR, MRA, NECK, WITHOUT IV CONTRAST, MR, BRAIN, WITHOUT CONTRAST, MR, MRA, BRAIN, WITHOUT CONTRAST, MR, ORBIT, FACE, NECK, WITHOUT CONTRAST CLINICAL INDICATION:Vertebral artery dissection and stroke. TECHNIQUE: Sagittal and coronal T1-w and axial T2-w, FLAIR, GRE, and diffusion-w images of the brain with ADC maps. 2D ckpn-qp-xwyjvf MRA of the neck. 3D nacp-ob-yrafcj MRA of the head. Source data and maximum intensity projections (MIPs) were reviewed. Axial T1 fat-sat, axial T1, coronal T1 fat-sat, axial STIR, and coronal STIR MRI of the neck without contrast. COMPARISON: None. FINDINGS: MRI BRAIN:Parenchyma: No infarction on DWI. No hemorrhage. No mass or mass effect. Extra-axial Collection: None Ventricular System: Normal Major Intracranial Flow Voids: Normal Osseous Structures: Expected marrow signal. Included Orbits: Normal Paranasal Sinuses: Predominantly clear Tympanomastoid Cavities: Normal MRA HEAD:Anterior Circulation:Right intracranial internal carotid artery (ICA): NormalRight anterior cerebral artery (CAMILA): NormalRight middle cerebral artery (MCA): Normal Left intracranial internal carotid artery (ICA): NormalLeft anterior cerebral artery (CAMILA): NormalLeft middle cerebral artery (MCA): Normal Anterior communicating artery (AComm): PresentPosterior communicating arteries (PComm): Present bilaterally. Posterior Circulation:Rightposterior cerebral artery (ELECTROCARDIOGRAPHIC TECHNICIAN): NormalLeft posterior cerebral artery (ELECTROCARDIOGRAPHIC TECHNICIAN): Normal Right vertebral artery (VA): NormalLeft vertebral artery (VA): Left vertebral artery is diffusely diminutive taperingto nonopacification at the V3 segment with intermittent signal within the left V4 segment. Intimal flap is suspected at the left V2 segment at the level of C1. The left PICA is patent.Basilar artery (BA): Normal Other: Normal MRA NECK: Right carotid arterial system: Normal. Left carotid arterial s ystem: Normal. Right vertebral artery: NormalLeft vertebral artery: Left vertebral artery is diffusely diminutive tapering to nonopacification at the V3 segment with intermittent signal within theleft V4 segment. Intimal flap is suspected at the left V2 segment at the level of C1. The left PICA is patent. Where applicable, evaluation of internal carotid artery (ICA) stenosis was performed using NASCET-like criteria, where the site of greatest stenosis is compared to the diameter of the ICA distal to the stenosis at a point where the ICA ha become parallel. MRI NECK:Diffusely diminutive left V1 and left V2 segments with intimal flap suspected at the C1 level correlating to MRA. Soft tissues of the neck are unremarkable. Unremarkable lung apices. IMPRESSION: 1. No acute intracranial infarction, hemorrhage, or mass.2. Nonopacification of the left vertebral artery extending from the distalleft V2 segment to the basilar junction of the left V4 segment suspicious for occluding dissection with intimal flap suspected at the level of C1. The left PICA is patent. This could be better evaluated with CTA, as clinically indicated. Signed: Neville Mei MDReport Verified Date/Time: 12/15/2019 02:16:06 LIPID [id number] 00:19:00 Test Item Value Reference Range Interpretation Comments TRIGLYCERIDES (BEAKER) 156 mg/dL Speci men slightly (test code = 540) hemolyzed CHOLESTEROL (BEAKER) 175 mg/dL Specime n slightly (test code = 631) hemolyzed HDL CHOLESTEROL (BEAKER) 40 mg/dL (test code = 976) LDL CHOLESTEROL 104 mg/dL CALCULATED (BEAKER) (test code = 633) Triglyceride Reference Range: Low Risk <150 Borderline 150-199 High Risk 200-499 Very High Risk >=500Cholesterol Reference Range: Low Risk <200 Borderline 200-239 High Risk >240HDL Cholesterol Reference Range: Low Risk >=60 High Risk <40LDL Cholesterol Reference Range: Optimal <100 Near Optimal 100-129 Borderline 130-159 High 160-189 Very High >=190 Ink Blender ID - PIAYALTROPONIN [id number] 22:51:00 Test Item Value Reference Range Interpretation Comments TROPONIN I (BEAKER) (test code = 397) < ng/mL 0.00-0.03 Troponin I (TnI) levels must be interpreted in the context of the presenting symptoms and the clinical findings. Elevated TnI levels indicate myocardial damage, but are not specific for ischemic heart disease. Elevated TnI levels are seen in patients with other cardiac conditions (including myocarditis and congestive heart failure), and slight TnI elevations occur in patients with other conditions, including sepsis, renal failure, acidosis, acute neurological disease, and persistent tachyarrhythmia.Ink Blender ID - PIAYA LBASIC METABOLIC [id number] 22:43:00 Test Item Value Reference Range Interpretation Comments SODIUM (BEAKER) 136 meq/L 136-145 (test code = 381) POTASSIUM (BEAKER) 3.8 meq/L 3.5-5.1 (test code = 379) CHLORIDE (BEAKER) 100 meq/L 98-107 (test code = 382) CO2 (BEAKER) (test 23 meq/L 22-29 code = 355) BLOOD UREA NITROGEN 9 mg/dL 7-21 (BEAKER) (test code = 354) CREATININE (BEAKER) 0.79 mg/dL 0.57-1.25 (test code = 358) GLUCOSE RANDOM 265 mg/dL 70-105 H (BEAKER) (test code = 652) CALCIUM (BEAKER) 9.0 mg/dL 8.4-10.2 (test code = 697) EGFR (BEAKER) (test 98 mL/min/1.73 ESTIMA DARNELL GFR IS code = 1092) sq m NOT ACCURATE CREATININE CLEARANCE IN PREDICTING GLOMERULAR FILTRATION RATE . ESTIMATED GFR I S NOT APPLICABLE FOR DIALYSIS PATIEN TS. Ink Blender ID - BSPROTHROMBIN [id number] 22:40:00 Test Item Value Reference Range Interpretation Comments PROTIME (BEAKER) (test code = 15.3 seconds 11.9-14.2 H 759) INR (BEAKER) (test code = 370) 1.2 <=5.9 Effective 01/22/2019: PT Reference Range ChangeNew: 11.9-14.2 Previous: 11.7- 14.7RECOMMENDED COUMADIN/WARFARIN INR THERAPY RANGESSTANDARD DOSE: 2.0-3.0 Includes: PROPHYLAXIS for venous thrombosis, systemic embolization; TREATMENT for venous thrombosis and/or pulmonary embolus.HIGH RISK: Target INR is2.5-3.5 for patients wiht mechanical heart valves.CBC W/PLT COUNT & AUTO [id number] 22:28:00 Test Item Value Reference Range Interpretation Comments WHITE BLOOD CELL COUNT (BEAKER) 7.6 K/ L 3.5-10.5 (test code = 775) RED BLOOD CELL COUNT (BEAKER) 4.67 M/ L 4.63-6.08 (test code = 761) HEMOGLOBIN (BEAKER) (test code = 14.9 GM/DL 13.7-17.5 410) HEMATOCRIT (BEAKER) (test code = 41.5 % 40.1-51.0 411) MEAN CORPUSCULAR VOLUME (BEAKER) 88.9 fL 79.0-92.2 (test code = 753) MEAN CORPUSCULAR HEMOGLOBIN 31.9 pg 25.7-32.2 (BEAKER) (test code = 751) MEAN CORPUSCULAR HEMOGLOBIN CONC 35.9 GM/DL 32.3-36.5 (BEAKER) (test code = 752) RED CELL DISTRIBUTION WIDTH 11.5 % 11.6-14.4 L (BEAKER) (test code = 412) PLATELET COUNT (BEAKER) (test 157 K/CU MM 150-450 code = 756) MEAN PLATELET VOLUME (BEAKER) 10.0 fL 9.4-12.4 (test code = 754) NUCLEATED RED BLOOD CELLS 0 /100 WBC 0-0 (BEAKER) (test code = 413) NEUTROPHILS RELATIVE PERCENT 77 % (BEAKER) (test code = 429) LYMPHOCYTES RELATIVE PERCENT 13 % (BEAKER) (test code = 430) MONOCYTES RELATIVE PERCENT 8 % (BEAKER) (test code = 431) EOSINOPHILS RELATIVE PERCENT 0 % (BEAKER) (test code = 432) BASOPHILS RELATIVE PERCENT 1 % (BEAKER) (test code = 437) NEUTROPHILS ABSOLUTE COUNT 5.84 K/ L 1.78-5.38 H (BEAKER) (test code = 670) LYMPHOCYTES ABSOLUTE COUNT 0.98 K/ L 1.32-3.57 L (BEAKER) (test code = 414) MONOCYTES ABSOLUTE COUNT (BEAKER) 0.60 K/ L 0.30-0.82 (test code = 415) EOSINOPHILS ABSOLUTE COUNT 0.01 K/ L 0.04-0.54 L (BEAKER) (test code = 416) BASOPHILS ABSOLUTE COUNT (BEAKER) 0.05 K/ L 0.01-0.08 (test code = 417) IMMATURE GRANULOCYTES-RELATIVE 1 % 0-1 PERCENT (BEAKER) (test code = 2801) POCT-GLUCOSE [id number] 20:03:00 Test Item Value Reference Range Interpretation Comments POC-GLUCOSE METER 261 mg/dL 70-110 H : TESTED A T [facility] 6720 (BEAKER) (test code = JESSIE FOUNTAIN, 1538) [address]882: Ink Blender/Techni briana ID = [id number] for ISREAL SOMERS
[2021-08-13] MEDS ORDERED: MORPHINE 4 MG/ML SYR ONE (06:18)
[2021-08-13] MEDS ORDERED: ONDANSETRON 4 MG/2 ML VIAL ONE (06:18)
[2021-08-13 06:45] LABS: Urine Blood 3+ (Negative); Urine Glucose 2+ (Negative); Urine Protein Negative (Negative); Urine Specific Gravity 1.025 (1.005-1.030)
[2021-08-13 06:57] LABS: Urine Bacteria <20 /HPF (NONE SEEN); Urine RBC >50 /HPF (NONE SEEN); Urine Yeast PRESENT (NONE SEEN)
[2021-08-13 07:00] LABS: Basophils % 0.7 % (0-1.3); Hematocrit 43.5 % (39.6-49.0); Lymphocytes % 10.5 % (15.3-44.8); MPV 8.3 fL (7.6-11.3)
[2021-08-13 07:04] LABS: Potassium 4.1 mmol/L (3.5-5.1)
--- NOTE | 2021-08-13 08:11 | RAD REPORT ---
EXAM DESCRIPTION: CT - Stone Protocol - 08/13/2021 6:55 am CLINICAL HISTORY: Flank pain. Abd pain;Flank pain COMPARISON: Abdomen Pelvis W Contrast dated 06/04/2016 TECHNIQUE: Axial images were obtained without oral or IV contrast. Lack of contrast limits solid org an and vascular assessment. The [id number] spans the entirety of the system partially obscuring uppermost abdomen and lung bases. Coronal reformatted images were obtained and reviewed. All CT scans are performed using dose optimization technique as appropriate and may include automated exposure control or mA/KV adjustment according to patient size. FINDINGS: The lower lung dietz are clear. Imaged portions of the liver and spleen show no suspicious findings on non-contrast imaging. The panc reas and adrenal glands are normal. No pathologic lymphadenopathy in the abdomen or pelvis. 4 mm mid left ureter stone is present resulting mild left hydronephrosis. Small 4 mm calculus is pres ent inferior calyx right kidney. No significant right-sided hydronephrosis. No bowel obstruction, free air, free fluid or abscess. Normal appendix noted.Moderate aortoiliac athe rosclerosis. Mild to moderate lumbosacral degenerative changes. IMPRESSION: 4 mm mid left ureter stone resulting in mild left hydronephrosis.
[2021-08-13] MEDS ORDERED: TAMSULOSIN 0.4 MG SR CAP ONE (08:26)
[2021-08-13] MEDS ORDERED: NA CHLORIDE 0.9% 1,000 ML ONE (08:26)
[2021-08-13] MEDS ORDERED: KETOROLAC 30 MG/ML INJ ONE (08:26)
[2021-08-13] MEDS ORDERED: FLUCONAZOLE 100 MG TAB ONE (08:27)
[2021-08-13] MEDS ORDERED: MAGNESIUM SULFATE 1 gm IVPB 1 GM/100 ML BAG IV ONE (08:44)
--- NOTE | 2021-08-13 08:59 | EDPHYS ---
Physician Documentation [facility] Name: Galdino Flores Age: 66 yrs Sex: Male : 1955 Arrival Date: 08/13/2021 Time: 04:46 Bed 15 Private MD: Srini Elizondo V ED Physician Gray Banuelos HPI: 08/13 09:41 This 66 yrs old Male presents to ER via Ambulatory with complaints of Possible Kidney kb Stone. 09:41 The patient presents with abdominal pain in the left lower quadrant. Onset: The kb symptoms/episode began/occurred last night, at 21:00. The symptoms radiate to the left flank. Associated signs and symptoms: Pertinent positives: nausea and vomiting, Pertinent negatives: fever. The symptoms are described as constant. Modifying factors: The symptoms are alleviated by nothing, the symptoms are aggravated by nothing. Severity of pain: At its worst the pain was moderate in the emergency department the pain is unchanged. The patient has not experienced similar symptoms in the past. The patient has not recently seen a physician. Historical: - Allergies: 05:29 No Known Allergies; bb - Immunization history:: Moderna x 3 vaccines. ROS: 09:37 Constitutional: Negative for fever, chills, and weight loss. kb 09:37 Abdomen/GI: Positive for abdominal pain, nausea and vomiting. 09:40 Back: Positive for flank pain, on the left. kb 09:40 All other systems are negative. Exam: 09:40 Constitutional: This is a well developed, well nourished patient who is awake, alert, kb and in no acute distress. Head/Face: Normocephalic, atraumatic. ENT: Moist Mucous membranes Respiratory: Respirations even and unlabored. No increased work of breathing. Talking in full sentences Skin: Warm, dry with normal turgor. Normal color. MS/ Extremity: Pulses equal, no cyanosis. Neurovascular intact. Full, normal range of motion. Neuro: Awake and alert, GCS 15, oriented to person, place, time, and situation. Moves all extremities. Normal gait. Psych: Awake, alert, with orientation to person, place and time. Behavior, mood, and affect are within normal limits. 09:40 Abdomen/GI: Inspection: abdomen appears normal, Bowel sounds: normal, Palpation: soft, in all quadrants, moderate abdominal tenderness, in the left lower quadrant. Vital Signs: 05:23 BP 164 / 74; Pulse 66; Resp 18 S; Temp 97.5(O); Pulse Ox 100% on R/A; Weight 117.93 kg bb (R); Height 5 ft. 9 in. (175.26 cm) (R); Pain 8/10; 06:40 BP 147 / 60; Pulse 69; Resp 20; Pulse Ox 98% on R/A; lp1 08:30 BP 145 / 68; Pulse 61; Resp 17; Pulse Ox 97% ; jg9 09:57 BP 152 / 64; Pulse 60; Resp 16 S; Pulse Ox 98% on R/A; jg9 05:23 Body Mass Index 38.39 (117.93 kg, 175.26 cm) bb MDM: 06:03 Patient medically screened. kb 09:40 Data reviewed: vital signs, nurses notes. Data interpreted: Pulse oximetry: on room air kb is 97 %. Interpretation: normal. Counseling: I had a detailed discussion with the patient and/or guardian regarding: the historical points, exam findings, and any diagnostic results supporting the discharge/admit diagnosis, lab results, radiology results, the need for outpatient follow up, a family practitioner, to return to the emergency department if symptoms worsen or persist or if there are any questions or concerns that arise at home. 08/13 06:06 Order name: Basic Metabolic Panel; Complete Time: 07:05 kb 08/13 06:06 Order name: CBC with Diff; Complete Time: 07:34 kb 08/13 06:06 Order name: CT Stone Protocol; Complete Time: 08:13 kb 08/13 06:06 Order name: Urine Microscopic Only; Complete Time: 07:00 kb 08/13 06:45 Order name: Urine Dipstick-Ancillary; Complete Time: 06:53 EDMS 08/13 06:58 Order name: Urine Culture EDMS 08/13 06:06 Order name: IV Saline Lock; Complete Time: 06:46 kb 08/13 06:06 Order name: Labs collected and sent; Complete Time: 06:46 kb 08/13 06:06 Order name: Urine Dipstick-Ancillary (obtain specimen); Complete Time: 06:46 kb Administered Medications: 06:35 Drug: Zofran (Ondansetron) 4 mg Route: IVP; Site: right forearm; lp1 07:00 Follow up: Response: No adverse reaction; Nausea is decreased jg9 06:35 Drug: morphine 4 mg Route: IVP; Site: right forearm; lp1 07:00 Follow up: Response: No adverse reaction; Pain is decreased jg9 08:34 Drug: NS 0.9% 1000 ml Route: IV; Rate: 1000 ml; Site: right forearm; jg9 09:49 Follow up: IV Status: Completed infusion; IV Intake: 1000ml jg9 08:34 Drug: Flomax (tamsulosin) 0.4 mg Route: PO; jg9 09:49 Follow up: Response: No adverse reaction jg9 08:35 Drug: Ketorolac 15 mg Route: IVP; Site: right forearm; jg9 09:49 Follow up: Response: Pain is decreased jg9 08:40 Drug: DiFLUcan (fluconazole) 150 mg Route: PO; jg9 09:49 Follow up: Response: No adverse reaction jg9 08:48 Drug: Magnesium Sulfate 1 grams Route: IVPB; Infused Over: 30 mins; Site: right forearm;jg9 09:05 Follow up: IV Status: Completed infusion; IV Intake: 100ml jg9 Disposition: 21:25 Co-signature as Attending Physician, Gray Banuelos MD. [email or web address] Disposition Summary: 08/13/21 08:58 Discharge Ordered Location: Home kb Condition: Stable kb Diagnosis - Calculus of ureter kb Followup: kb - With: Emergency Department - When: As needed - Reason: Worsening of condition Followup: kb - With: Private Physician - When: 2 - 3 days - Reason: Recheck today's complaints, Continuance of care, Re-evaluation by your physician Discharge Instructions: - Discharge Summary Sheet kb - Kidney Stones, [id number] kb - Dietary Guidelines to Help Prevent Kidney Stones kb Forms: - Medication Reconciliation Form kb - Thank You Letter kb - Antibiotic Education kb - Prescription Opioid Use kb Prescriptions: - Flomax 0.4 mg Oral capsule - take 1 capsule by ORAL route once daily 1/2 hour following the same meal each kb day; 10 capsule; Refills: 0, Product Selection Permitted - Zofran 4 mg Oral Tablet - take 1 tablet by ORAL route every 6 hours As needed; 20 tablet; Refills: 0, kb Product Selection Permitted - Diclofenac Sodium 75 mg Oral tablet,delayed release (DR/EC) - take 1 tablet by ORAL route 2 times per day As needed; 30 tablet; Refills: 0, kb Product Selection Permitted Signatures: Dispatcher [employer] Daniela Machado, Pallavi Reese, RN RN bb Betty Andrade RN RN lp1 Gray Banuelos MD MD 7 Juana Jimenez9 Corrections: (The following items were deleted from the chart) 09:40 09:37 Abdomen/GI: Positive for abdominal pain, kb kb
--- NOTE | 2021-08-13 08:59 | ER ---
Nurse's Notes [facility] Name: Galdino Flores Age: 66 yrs Sex: Male : 1955 Arrival Date: 08/13/2021 Time: 04:46 Bed 15 Private MD: Srini Elizondo V Diagnosis: Calculus of ureter Presentation: 08/13 05:23 Chief complaint: Patient states: he thinks he has a kidney stone is having low back bb pain, vomiting, dizziness since approx 2100 last night. Coronavirus screen: At this time, the client does not indicate any symptoms associated with coronavirus-19. Ebola Screen: No symptoms or risks identified at this time. Initial Sepsis Screen: Does the patient meet any 2 criteria? No. Patient's initial sepsis screen is negative. Does the patient have a suspected source of infection? No. Patient's initial sepsis screen is negative. Risk Assessment: Do you want to hurt yourself or someone else? Patient reports no desire to harm self or others. Onset of symptoms was August 12, 2021. 05:23 Method Of Arrival: Ambulatory bb 05:23 Acuity: GABY 3 bb Triage Assessment: 05:29 General: Appears uncomfortable, Behavior is cooperative, anxious. Pain: Complains of bb pain in back Pain currently is 8 out of 10 on a pain scale. Neuro: Level of Consciousness is awake, alert, obeys commands, Oriented to person, place, time. Cardiovascular: Capillary refill < 3 seconds Patient's skin is warm and dry. Respiratory: Respiratory effort is unlabored, Respiratory pattern is regular. GI: Abdomen is round Reports vomiting. Derm: Skin is pale. Musculoskeletal: Circulation, motion, and sensation intact. Historical: - Allergies: 05:29 No Known Allergies; bb - Immunization history:: Moderna x 3 vaccines. Screenin:46 Abuse screen: Denies threats or abuse. Denies injuries from another. Nutritional lp1 screening: No deficits noted. Tuberculosis screening: No symptoms or risk factors identified. Fall Risk None identified. Assessment: 06:45 General: Appears uncomfortable, Behavior is appropriate for age. Pain: Complains of lp1 pain in suprapubic area Pain currently is 8 out of 10 on a pain scale. Neuro: Level of Consciousness is awake, alert, obeys commands. GI: Pt is actively vomiting bile. Derm: Skin is intact, Skin is diaphoretic, Skin is normal. Musculoskeletal: No deficits noted. 07:24 Reassessment: Patient and/or family updated on plan of care and expected duration. Pain jg9 level reassessed. Patient is alert, oriented x 3, equal unlabored respirations, skin warm/dry/pink. Patient states symptoms have improved. Pain: Complains of pain in pelvis Pain currently is 4 out of 10 on a pain scale. Current management is with Morphine. 08:50 Reassessment: Patient appears in no apparent distress at this time. pain level 1/10. jg9 Vital Signs: 05:23 BP 164 / 74; Pulse 66; Resp 18 S; Temp 97.5(O); Pulse Ox 100% on R/A; Weight 117.93 kg bb (R); Height 5 ft. 9 in. (175.26 cm) (R); Pain 8/10; 06:40 BP 147 / 60; Pulse 69; Resp 20; Pulse Ox 98% on R/A; lp1 08:30 BP 145 / 68; Pulse 61; Resp 17; Pulse Ox 97% ; jg9 09:57 BP 152 / 64; Pulse 60; Resp 16 S; Pulse Ox 98% on R/A; jg9 05:23 Body Mass Index 38.39 (117.93 kg, 175.26 cm) bb ED Course: 04:46 Patient arrived in ED. es 04:46 Srini Elizondo MD is Private Physician. es 05:29 Triage completed. bb 05:29 Arm band placed on Patient placed in an exam room, on a stretcher, on pulse oximetry. bb Family accompanied patient. 06:03 Daniela Long FNP-C [facility] kb 06:03 Gray Banuelos MD is Attending Physician. kb 06:35 Inserted saline lock: 20 gauge in right forearm, using aseptic technique. Blood lp1 collected. 06:35 Urine collected: clean catch specimen, clear. lp1 06:55 CT Stone Protocol In Process Unspecified. EDMS 07:14 Juana Jimenez is Primary Nurse. jg9 08:50 No apparent distress. Awaiting lab results, Awaiting radiology results. Awaiting jg9 disposition. Administered Medications: 06:35 Drug: Zofran (Ondansetron) 4 mg Route: IVP; Site: right forearm; lp1 07:00 Follow up: Response: No adverse reaction; Nausea is decreased jg9 06:35 Drug: morphine 4 mg Route: IVP; Site: right forearm; lp1 07:00 Follow up: Response: No adverse reaction; Pain is decreased jg9 08:34 Drug: NS 0.9% 1000 ml Route: IV; Rate: 1000 ml; Site: right forearm; jg9 09:49 Follow up: IV Status: Completed infusion; IV Intake: 1000ml jg9 08:34 Drug: Flomax (tamsulosin) 0.4 mg Route: PO; jg9 09:49 Follow up: Response: No adverse reaction jg9 08:35 Drug: Ketorolac 15 mg Route: IVP; Site: right forearm; jg9 09:49 Follow up: Response: Pain is decreased jg9 08:40 Drug: DiFLUcan (fluconazole) 150 mg Route: PO; jg9 09:49 Follow up: Response: No adverse reaction jg9 08:48 Drug: Magnesium Sulfate 1 grams Route: IVPB; Infused Over: 30 mins; Site: right forearm;jg9 09:05 Follow up: IV Status: Completed infusion; IV Intake: 100ml jg9 Intake: 09:05 IV: 100ml; Total: 100ml. jg9 09:49 IV: 1000ml; Total: 1100ml. jg9 Outcome: 08:58 Discharge ordered by . kb 09:59 Patient left the ED. jg9 Signatures: Dispatcher [employer] Daniela Machado, JAY JAY FRITZ-Raine Martell Brenda RN RN bb Betty Andrade RN RN lp1 Juana Jimenez jg9
[2021-08-13 10:06] VITALS: TEMP 97.5
[2021-08-13 10:11] VITALS: BP 152/64; O2SAT 98
== END 2021-08-13 09:59 | disposition home or self-care (01) ==
LOC: ER 04:42
DX: N20.1 Calculus of ureter (principal)
CPT/HCPCS: 96365; 96361; 85025; 87086; 80048; 36415; 76377; 74176; 96375; 99284; J3475; J7030; J2405; 81003; 81015; 87088

== ENCOUNTER 2022-06-11 12:16 | Emergency (ER) | payer OTHER ==
--- OUTSIDE RECORDS SUMMARY | 2022-06-11 12:20 | XMS REPORT | Continuity of Care Document ---
:1955 Author Organization [facility] t Address [address] [place] [address] Care Team Providers Name Role Phone ARACELI GUTIERREZ Primary Care Physician Unavailable LIVIER ANGELO Attending Clinician Unavailable Livier Angelo MD Attending Clinician Doctor Unassigned, [place] Attending Clinician Unavailable Pankaj Aiken Attending Clinician PANKAJ BROOKS Attending Clinician Unavailable Pob, [facility] Main Attending Clinician Unavailable HUMBERTO CAI Attending Clinician Unavailable MARKELL WU Admitting Clinician Unavailable Payers Payer Name Policy Type Policy Number Effective Date Expiration Date Nils DORSEY MANAGED [id number] 2020 MEDICARE PPO-SUSANA 00:00:00 Problems Condition Condition Condition Status Onset Resolution Last Treating Co mments Source Name Details Category Date Date Treatment Clinician Date No known No known Disease Unive rs active active ity of problems problems [facility] Allergies, Adverse Reactions, Alerts Allergy Allergy Status Severity Reaction(s) Onset Inactive Treating Comm ents Source Name Type Date Date Clinician NO KNOWN Allergy [facility] NO KNOWN Drug Active Univers ALLERGIE Class ity of [facility] [place] [facility] Social History Social Habit Start Date Stop Date Quantity Comments Source History SDOH University o f Alcohol Std [place] [facility] History SDOH University o f Alcohol Binge [place] [facility] History SDOH University o f Alcohol Comment [place] [facility] Exposure to Not sure University of SARS-CoV-2 [place] [facility] (event) Branch Alcohol intake 2021-11-28 2021-11-28 Lifetime University of 00:00:00 00:00:00 non-drinker [facility] (finding) Branch Tobacco use and 2020-12-01 2020-12-01 Never used Universit y of exposure 00:00:00 00:00:00 [facility] History SDOH 2020-12-01 2020-12-01 1 University o f Alcohol Frequency 00:00:00 00:00:00 [facility] Sex Ass[birth year] At [birth year] Universit y of 00:00:00 00:00:00 [facility] Smoking Status Start Date Stop Date Source Never smoker [facility] Branch Medications Ordered Filled Start Stop Current Ordering Indication Dosage Frequency Signature Comments Components Source Medication Medication Date Date Medication? Clinician (SIG) Name Name apremilast Yes Take by Univ ers (OTEZLA) 30 6-11 mouth. ity of mg tablet 08:40: [facility] sulfaSALAzi Yes 500mg Take 500 U nivers ne 500 mg 6-11 mg by ity of EC tablet 08:38: mouth. [address] Branch LOVAZA, Yes 1g Take 1 g Univer s omega-3-aci 6-11 by mouth. ity of d ethyl 08:38: [place] esters, 53 Medical gram Branch capsule lisinopriL Yes 40mg Take 40 mg U nivers 40 mg 6-11 by mouth. ity of tablet 08:38: [address] Branch hydrOXYchlo Yes Take by Uni vers roQUINE 200 6-11 mouth. ity of mg tablet 08:38: [address] Branch XARELTO 20 Yes Univers mg tablet 5-20 ity of 00:00: [facility] Azelastine Yes Univers 205.5 mcg 5-20 ity of (0.15 %) 00:00: [place] nasal spray 00 Medical Branch VASCEPA 1 Yes TAKE 2 Univer s gram 4-13 CAPSULES ity of capsule 00:00: TWICE A [place] 00 DAY WITH Medical MEALS Branch amLODIPine Yes 10mg Take 10 mg U nivers 10 mg 3-31 by mouth. ity of tablet 13:21: [place] [facility] fenofibrate 0 Yes 145mg Take 145 U nivers 145 mg 3-31 mg by ity of tablet 13:21: mouth. [place] [facility] metoprolol Yes 200mg Take 200 Un jose carlos succinate 3-31 mg by ity of XL 200 mg 13:21: mouth. [place] 24 hr Medical tablet Branch SIMPONI 50 Yes Univers mg/0.5 mL 3-29 ity of Syrg 00:00: [place] [facility] celecoxib Yes Univers 200 mg 3-25 ity of capsule 00:00: [place] [facility] glimepiride Yes TAKE 1 Univ ers 4 mg tablet 3-09 TABLET BY ity of 00:00: MOUTH [place] [address] EVERY DAY. Medical STOP Branch JARDIANCE JANUMET Yes 1{tbl} Take 1 Univer s 50-1,000 mg 3-09 tablet by ity of per tablet 00:00: [place] (two[place] Medical times Branch daily with meals. tadalafiL Yes TAKE 1 Univer s 20 mg 3-09 TABLET BY ity of tablet 00:00: MOUTH [place] [address] EVERY DAY Medical NEEDED Branch rosuvastati Yes 40mg Take 40 mg Univers n 40 mg 4-20 by mouth. ity of tablet 00:00: [place] [facility] Vital Signs Vital Name Observation Time Observation Value Comments Source Systolic blood 2021-11-28 20:56:00 112 mm[Hg] Univer sity [facility] pressure Medical Branch Diastolic blood 2021-11-28 20:56:00 76 mm[Hg] [facility] Heart rate 2021-11-28 20:56:00 85 /min [facility] Body height 2021-11-28 20:56:00 175.3 cm [facility] Body weight 2021-11-28 20:56:00 117.482 kg [facility] BMI 2021-11-28 20:56:00 38.25 kg/m2 [facility] Oxygen saturation 2021-11-28 20:56:00 98 /min [facility] in Arterial blood Medical Br anch by Pulse oximetry Procedures This patient has no known procedures. Encounters Start End Encounter Admission Attending Care Care Encounter Source Date/Time Date/Time Type Type Clinicians Facility Department ID 2019-12-14 Inpatient [facility] [id number] [facility] 19:05:00 [id number] 2022-02-10 2022-02-10 [facility] [id number] Univers 09:15:00 09:15:00 LIVIER [facility] 2021-11-28 2021-11-28 [facility] [id number] Univers 16:15:00 16:42:31 LIVIER [facility] 2021-11-28 2021-11-28 [facility] [id number] Univers 16:15:00 16:42:31 Visit Livier Maldonado [facility] [id number] it y of [place] 4.2.7.2.686 Vinod as TAVIA?BLEA [phone] Ri arina [address] MEDICAL OFFICE [facility] 2021-11-28 2021-11-28 Orders Doctor SANDI [id number] Univers 00:00:00 00:00:00 Only Unassigned, LISA 350.1.13.10 ity of [place] [facility] 4.2.7.2.686 Vinod as [phone] [address] 2021-05-16 2021-05-16 Orders Doctor SANDI [id number] Univers 00:00:00 00:00:00 Only Unassigned, LISA 350.1.13.10 ity of [place] [facility] 4.2.7.2.686 Vinod as [phone] [address] 2021-03-21 2021-03-21 Outpatient R [facility] [id number] Univers 15:45:00 15:45:00 LIVIER [facility] 2021-03-21 2021-03-21 [facility] [id number] Univers 15:45:00 15:45:00 Visit Livier Maldonado [facility] 350.1.13.10 it y of SURGICAL 4.2.7.2.686 Vinod as SPECIALTI [id number] Ri arina ESCOBAR [address] [place] [address] 2021-03-21 2021-03-21 [facility] [id number] Univers 15:45:00 15:06:43 LIVIER [facility] 2021-03-21 2021-03-21 [facility] [id number] Univers 15:45:00 15:06:43 LIVIER [facility] 2021-02-23 2021-02-23 [facility] [id number] Univers 14:05:14 15:04:23 Visit Pankaj Castro 350.1.13.10 it y of Surgical 4.2.7.2.686 Vinod as Specialti [id number] Ri dical es [facility] 2021-02-23 2021-02-23 [facility]patient [facility] [id number] Univers 14:00:00 14:00:00 PANKAJ [facility] 2021-02-16 2021-02-16 Orders Doctor JUNIOR [id number] Univers 00:00:00 00:00:00 Only Unassigned, LISA 350.1.13.10 ity of [place] [facility] 4.2.7.2.686 Vinod as [id number] [facility] 009 Ruby 2021-02-09 2021-02-09 Hospital Petey CLARY [id number] Univers 13:59:00 23:59:00 Encounter Livier Erica [place] 350.1.13.10 [place] [id number] [facility] 043 Ruby 2021-02-09 2021-02-09 [facility] NUT [id number] Univers 00:00:00 00:00:00 LIVIER [facility] 2021-02-04 2021-02-04 Outpatient [facility] [id number] Univers 10:30:00 10:30:00 LIVIER [facility] 2021-02-04 2021-02-04 [facility] [id number] Univers 08:32:15 10:01:00 Visit Livier Castro 350.1.13.10 it y of Surgical 4.2.7.2.686 Vinod as Specialti [phone] Ri dical es [facility] 2021-02-04 2021-02-04 Cold Press Operator Zechariah, [facility] Main [facility] 1.2.8 40.114 [id number] Univers 09:25:34 09:40:34 Visit Livier Angelo 350.1.13.10 ity of [place] Profess[place] [phone] Ri dical nal 353 [facility] 2021-02-04 2021-02-04 Orders Doctor SANDI 1.2.840.114 [id number] Univers 00:00:00 00:00:00 Only Unassigned, LISA 350.1.13.10 ity of [place] [facility] 4.2.7.2.686 Vinod as [id number] [address] 2021-01-31 2021-01-31 Telephone [facility] 1.2.840.114 [id number] Univers 00:00:00 00:00:00 Livier Crouch 350.1.13.10 i ty [place] [id number] Ri dical nal 198 [facility] 2020-12-20 2020-12-20 Tele[facility] 1.2.840.114 [id number] Univers 00:00:00 00:00:00 Livier Crouch 350.1.13.10 i ty [place].2.[place] [phone] Ri dical nal 198 [facility] 2020-12-20 2020-12-20 Orders Doctor SANDI 1.2.840.114 [id number] Univers 00:00:00 00:00:00 Only Unassigned, LISA 350.1.13.10 ity of [place] [facility] 4.2.7.2.686 Vinod as [id number] [address] 2020-12-16 2020-12-16 Cold Press Operator Zechariah, Adc Lab Main [facility] 1.2.8 40.114 [id number] Univers 10:49:22 11:04:22 Visit Livier Angelo 350.1.13.10 ity of [place].2.[place] [phone] Ri dical nal 353 Branch [facility] 2020-12-16 2020-12-16 [facility] [id number] Univers 10:48:26 10:48:26 Encounter Pankaj Wray [place] 350.1.13.10 ity of [place].2.[place] [id number] [facility] 807 Ruby 2020-12-16 2020-12-16 Office [facility] [id number] Univers 09:43:01 10:40:53 Visit Livier Castro 350.1.13.10 it y of Surgical 4.2.7.2.686 Vinod as Specialti [id number] Ri dical es 198 [facility] 2020-12-16 2020-12-16 [facility] [id number] Univers 09:45:00 09:45:00 LIVIER [facility] 2020-12-15 2020-12-15 [facility] 1.2.840.114 [id number] Univers 07:56:39 23:59:00 Encounter Livier Crouch 350.1.13.10 ity of [place].2.[place] [id number] [address] 2020-12-15 2020-12-15 [facility] 1.2.840.114 [id number] Univers 07:54:22 07:55:00 Encounter Livier Crouch 350.1.13.10 ity of [place].2.[place] [phone] [address] 2020-12-15 2020-12-15 [facility] [id number] Univers 00:00:00 00:00:00 LIVIER [facility] 2020-12-08 2020-12-08 Telephone [facility] 1.2.840.114 [id number] Univers 00:00:00 00:00:00 Livier Castro 350.1.13.10 it y of Surgical 4.2.7.2.686 Vinod as Specialti [phone] Ri dical es 198 [facility] 2020-12-01 2020-12-01 [facility] [id number] Univers 14:45:56 15:29:45 Visit Livier aCstro 350.1.13.10 it y of Surgical 4.2.7.2.686 Vinod as Specialti [phone] Ri dical es 198 [facility] 2020-12-01 2020-12-01 [facility] [id number] Univers 15:00:00 15:00:00 LIVIER [facility] 2020-11-24 2020-11-24 Hospital [facility] 1.2.840.114 [id number] Univers 14:46:16 23:59:00 Encounter Livier Crouch 350.1.13.10 ity [place] [phone] [facility] 807 Ruby 2020-11-24 2020-11-24 Office Pankaj Brooks [facility] 1.2.840.114 [id number] Univers 13:11:24 14:52:43 Visit Livier Angelo 350.1.13.10 ity of Surgical 4.2.7.2.686 Vinod as Specialti [phone] Ri dical es 198 [facility] 2020-11-24 2020-11-24 Outpatient [facility] [id number] Univers 13:15:00 13:15:00 LIVIER [facility] 2020-11-24 2020-11-24 Orders Doctor SANDI 1.2.840.114 [id number] Univers 00:00:00 00:00:00 Only Unassigned, LISA 350.1.13.10 ity of [place] [facility] 4.2.7.2.686 Vinod as [phone] [facility] 009 Branch Results Test Description Test Time Test Comments Results Result Comments Source RPR 2019-12-16 10:30:00 Test Item Value Reference Range Interpretation Comme nts RPR SCREEN (BEAKER) (test code = 420) Nonreactive Nonreactive POCT-GLUCOSE [id number] 12:46:00 Test Item Value Reference Range Interpretation Comments POC-GLUCOSE METER 302 mg/dL 70-110 H : TESTED A T [facility] 6720 (BEAKER) (test code = [facility], 1538) 08173: Chief Supply Chain Officer/Techni briana ID = [id number] for DAVINA TABARES POCT-GLUCOSE [id number] 10:41:00 Test Item Value Reference Range Interpretation Comments POC-GLUCOSE METER 310 mg/dL 70-110 H : TESTED A T [facility] 6720 (BEAKER) (test code = [facility], 1538) 27491: Chief Supply Chain Officer/Techni briana ID = [id number] for GREGG KEITH HEMOGLOBIN [id number] 08:27:00 Test Item Value Reference Range Interpretation Comments HEMOGLOBIN A1C (BEAKER) (test code = 10.2 % 4.3-6.1 H 368) VITAMIN B12 AND [id number] 07:44:00 Test Item Value Reference Range Interpretation Comments VITAMIN B12 (BEAKER) (test code = 1763 pg/mL 213-816 H 774) FOLATE (BEAKER) (test code = 362) 14.90 ng/mL >=7.00 Chief Supply Chain Officer ID Patrick VALDES [id number] 06:32:00 Test Item Value Reference Range Interpretation Comments MAGNESIUM (BEAKER) (test code = 1.7 mg/dL 1.6-2.6 627) Chief Supply Chain Officer ID Patrick VALDES LBASIC METABOLIC [id number] 06:32:00 Test Item Value Reference Range Interpretation [...] S NOT APPLICABLE FOR DIALYSIS PATIEN TS. Chief Supply Chain Officer ID Patrick VALDES LC-REACTIVE [id number] 06:32:00 Test Item Value Reference Range Interpretation Comments C-REACTIVE PROTEIN (BEAKER) (test 0.31 mg/dL 0.00-0.50 code = 676) Chief Supply Chain Officer ID - LUCIO LTSH/FREE T4 IF [id number] 06:27:00 Test Item Value Reference Range Interpretation Comments THYROID STIMULATING HORMONE 1.017 uIU/mL 0.350-4.940 (BEAKER) (test code = 772) Chief Supply Chain Officer ID Patrick VALDES LHIV-1 ANTIGEN WITH HIV-1/2 [id number] 06:27:00 Test Item Value Reference Range Interpretation Comments HIV-1 ANTIGEN WITH HIV 1\T\2 Nonreactive Nonreactive ANTIBODY (2) (AKER) (test code = 2586) Chief Supply Chain Officer ID - LUCIO LTROPONIN [id number] 06:04:00 Test Item Value Reference Range Interpretation [...] failure, acidosis, acute neurological disease, and persistent tachyarrhythmia.Chief Supply Chain Officer FORREST VALDES LCBC (HEMOGRAM ONLY) 2019-12-15 05:41:00 Test Item [...] (test code = 413) MR, BRAIN, WITHOUT [id number] 02:16:00Reason for exam:->Ischemic Stroke EvaluationReason for exam:->DISSECTION PROTOCOLFINAL REPORT EXAM: MR, MRA, NECK, WITHOUT IV CONTRAST, MR, BRAIN, WITHOUT CONTRA ST, MR, MRA, BRAIN, WITHOUT CONTRAST, MR, ORBIT, FACE, NECK, WITHOUT CONTRAST CLINICAL INDICATION: Vertebral artery dissection and stroke. TECHNIQUE: Sagittal and coronal T1-w and axial T2-w, FLAIR, GRE, and diffusion-w images of the brain with ADC maps. 2D vnkm-kj-jizuhl MRA of the neck. 3D umuk-yc-mpfgnh MRA of the head. Source data and maximum intensity projections (MIPs) were reviewed. Axial T1 fat-sat, axial T1, coronal T1 fat-sat, axial STIR, and coronal STIR MRI of the neck without contrast. COMPARISON: None. FINDINGS: MRI BRAIN:Parenchyma: No infarction on DWI. No hemorrhage. No mass or mass effect. Extra-axial Collection: None Ventricular System: Normal Major Intracranial Flow Voids: Anitha l Osseous Structures: Expected marrow signal. Included Orbits: Normal Paranasal Sinuses: Predominantly clear Tympanomastoid Cavities: Normal MRA HEAD:Anterior Circulation:Right intracranial internal carotid artery (ICA): NormalRight anterior cerebral artery (CAMILA): NormalRight middle cerebral artery (MCA): Normal Left intracranial internal carotid artery (ICA): NormalLeft anterior cerebral artery (CAMILA): NormalLeft middle cerebral artery (MCA): Normal Anterior communicating artery (AComm): PresentPosterior communicating arteries (PComm): Present bilaterally. Posterior Circulation:Right posterior cerebral artery (CONTINUUM OF CARE MANAGER): NormalLeft posterior cerebral artery (CONTINUUM OF CARE MANAGER): Normal Right vertebral artery (VA): NormalLeft vertebral artery (VA): Left vertebral artery is diffusely diminutive tapering [...] intermittent signal within the left V4 segment. Intimalflap is suspected at the left V2 segment [...] NECK:Diffusely diminutive left V1 and left V2 segmentswith intimal flap suspected at the C1 level correlating to MRA. Soft tissues of the neck are unremarkable. Unremarkable lung apices. IMPRESSION: 1. No acute intracranial infarction, hemorrhage, or mass.2. Nonopacification of the left vertebral artery extending from the distal left V2 segment to the basilar junction of the left V4 segment suspicious for occluding dissection with intimal flap suspectedat the level of C1. The left PICA is patent. This could be better evaluated with CTA, as clinically indicated. Signed: Neville Mei MDReport Verified Date/Time: 12/15/2019 02:16:06 MR, MRA, BRAIN, WITHOUT [id number] 02:16:00 Patient last known well 05:00 12/14/2019Acute onset dizziness with nausea and vomiting, clockwise room-spinningCTH without infarction/ hemorrhageCTA Head and Neck with diminuitive left vertebral artery and concern for large dissectionReason for exam:->Ischemic Stroke EvaluationReason for exam:->DI SSECTION PROTOCOLFINAL REPORT EXAM: MR, MRA, NECK, WITHOUT IV CONTRAST, MR, BRAIN, WITHOUT CONTRAST, MR, MRA, BRAIN, WITHOUT CONTRAST, MR, ORBIT, FACE, NECK, WITHOUT CONTRAST CLINICAL INDICATION: Vertebral artery dissection and stroke. TECHNIQUE: Sagittal and coronal T1-w and axial T2-w, FLAIR, GRE, and diffusion-w images of the brain with ADC maps. 2D irdh-vb-ebbamw MRA of the neck. 3D fhhx-sx-jrvaid MRA of the head. Source data and maximum intensity projections (MIPs) were reviewed. Axial T1 fat-sat, axial T1, coronal T1 fat-sat, axial STIR, and coronal STIR MRI of the neck without contrast. C OMPARISON: None. FINDINGS: MRI BRAIN:Parenchyma: No infarction on [...] PresentPosterior communicating arteries (PComm): Present bilaterally. Posterior Circulation:Right posterior cerebral artery (CONTINUUM OF CARE MANAGER): NormalLeft posterior cerebral artery (CONTINUUM OF CARE MANAGER): Normal Right vertebral artery (VA): NormalLeft vertebral artery (VA): Left vertebral artery is diffusely diminutive tapering [...] intermittent signal within the left V4 segment. Intimalflap is suspected at the left V2 segment at the level of C1. The left PICA is patent. Where applicable, evaluation of internal carotid artery (ICA) stenosis was performed using NASCET- like criteria, where the site of greatest stenosis is compared to the diameter of the ICA distal to the stenosis at a point where the ICA ha become parallel. MRI NECK:Diffusely diminutive left V1 and left V2 segmentswith intimal flap suspected at the C1 level correlating to MRA. Soft tissues of the neck are unremarkable. Unremarkable lung apices. IMPRESSION: 1. No acute intracranial infarction, hemorrhage, or mass.2. Nonopacification of the left vertebral artery extending from the distal left V2 segment to the basilar junction of the left V4 segment suspicious for occluding dissection with intimal flap suspectedat the level of C1. The left PICA is patent. This could be better evaluated with CTA, as clinically indicated. Signed: Neville Mei MDReport Verified Date/Time: 12/15/2019 02:16:06 MR, MRA, NECK, WITHOUT IV [id number] 02:16:00Reason for exam:- >Ischemic Stroke EvaluationReason for exam:->DISSECTION PROTOCOLFINAL REPORT EXAM: MR, MRA, NECK, WITHOUT IV CONTRAST, MR, BRAIN, WITHOUT CONTRAST, MR, MRA, BRAIN, WITHOUT CONTRAST, MR, ORBIT, FACE, NECK, WITHOUT CONTRAST CLINICAL INDICATION: Vertebral artery dissection and stroke. TECHNIQUE: Sagittal and coronal T1-w and axial T2-w, FLAIR, GRE, and diffusion-w images of the brain with ADC maps. 2D vmhq-lo-pxmjub MRA of the neck. 3D evbs-lb-nnbvwr MRA of the head. Source data and [...] Cavities: Normal MRA HEAD:Anterior Circulation:Right intracranial internal car otid artery (ICA): NormalRight anterior cerebral artery (CAMILA): NormalRight middle cerebral artery (MCA): Normal Left intracranial internal carotid artery (ICA): NormalLeft anterior cerebral artery (CAMILA): NormalLeft middle cerebral artery (MCA): Normal Anterior communicating artery (AComm): PresentPosterior communicating arteries (PComm): Present bilaterally. Posterior Circulation:Right posterior cerebral artery (CONTINUUM OF CARE MANAGER): NormalLeft posterior cerebral artery (CONTINUUM OF CARE MANAGER): Normal Right vertebral artery (VA): NormalLeft vertebral artery (VA): Left vertebral artery is diffusely diminutive tapering [...] intermittent signal within the left V4 segment. Intimalflap is suspected at the left V2 segment at the level of C1. The left PICA is patent. Where applicable, evaluation of internal carotid artery (ICA) stenosis was performed using NASCET- like criteria, where the site of greatest stenosis is compared to the diameter of the ICA distal to the stenosis at a point where the ICA ha become parallel. MRI NECK:Diffusely diminutive left V1 and left V2 segmentswith intimal flap suspected at the C1 level correlating to MRA. Soft tissues of the neck are unremarkable. Unremarkable lung apices. IMPRESSION: 1. No acute intracranial infarction, hemorrhage, or mass.2. Nonopacification of the left vertebral artery extending from the distal left V2 segment to the basilar junction of the left V4 segment suspicious for occluding dissection with intimal flap suspectedat the level of C1. The left PICA is patent. This could be better evaluated with CTA, as clinically indicated. Signed: Neville Mei MDRthe institute of living Verified Date/Time: 12/15/2019 02:16:06 MR, ORBIT, FACE, NECK, WITHOUT [id number] 02:16:00FINAL REPORT EXAM: MR, MRA, NECK, WITHOUT IV CONTRAST, MR, BRAIN, WITHOUT CONTRAST, MR, MRA, BRAIN, WITHOUT CONTRAST, MR, ORBIT, FACE, NECK, WITHOUT CONTRAST CLINICAL INDICATION: Vertebral artery dissection and stroke. TECHNIQUE: Sagittal and coronal T1-w and axial T2-w, FLAIR, GRE, and diffusion-w images of the brain with ADC maps. 2D lzmq-cc-jhvtiv MRA of the neck. 3D dihf-ao-ivjiem MRA of the head. Source data and [...] Cavities: Normal MRA HEAD:Anterior Circulation:Right intracranial internal car otid artery (ICA): NormalRight anterior cerebral artery (CAMILA): NormalRight middle cerebral artery (MCA): Normal Left intracranial internal carotid artery (ICA): NormalLeft anterior cerebral artery (CAMILA): NormalLeft middle cerebral artery (MCA): Normal Anterior communicating artery (AComm): PresentPosterior communicating arteries (PComm): Present bilaterally. Posterior Circulation:Right posterior cerebral artery (CONTINUUM OF CARE MANAGER): NormalLeft posterior cerebral artery (CONTINUUM OF CARE MANAGER): Normal Right vertebral artery (VA): NormalLeft vertebral artery (VA): Left vertebral artery is diffusely diminutive tapering [...] intermittent signal within the left V4 segment. Intimalflap is suspected at the left V2 segment at the level of C1. The left PICA is patent. Where applicable, evaluation of internal carotid artery (ICA) stenosis was performed using NASCET- like criteria, where the site of greatest stenosis is compared to the diameter of the ICA distal to the stenosis at a point where the ICA ha become parallel. MRI NECK:Diffusely diminutive left V1 and left V2 segmentswith intimal flap suspected at the C1 level correlating to MRA. Soft tissues of the neck are unremarkable. Unremarkable lung apices. IMPRESSION: 1. No acute intracranial infarction, hemorrhage, or mass.2. Nonopacification of the left vertebral artery extending from the distal left V2 segment to the basilar junction of the left V4 segment suspicious for occluding dissection with intimal flap suspectedat the level of C1. The left PICA is patent. This could be better evaluated with CTA, as clinically indicated. Signed: Neville Mei MDReport Verified Date/Time: 12/15/2019 02:16:06 LIPID [id number] 00:19:00 Test Item Value Reference Range Interpretation Comments TRIGLYCERIDES (BEAKER) 156 mg/dL Speci men slightly (test code = 540) hemolyzed CHOLESTEROL (BEAKER) 175 mg/dL Specime n slightly (test code = 631) hemolyzed HDL CHOLESTEROL (BEAKER) 40 mg/dL (test code = 976) LDL CHOLESTEROL 104 mg/dL CALCULATED (BEAKER) (test code = 633) Triglyceride Reference Range: Low Risk <150 Borderline 150-199 High Risk 200- 499 Very High Risk >=500Cholesterol Reference Range: Low Risk <200 Borderline 200-239 High Risk >240HDL Cholesterol Reference Range: Low Risk >=60 High Risk <40LDL Cholesterol Reference Range: Optimal <100 Near Optimal 100-129 Borderline 130-159 High 160-189 Very High >=190 Chief Supply Chain Officer FORREST Nguyen LUCIO BOBBI [id number] 22:51:00 Test Item Value Reference Range Interpretation [...] failure, acidosis, acute neurological disease, and persistent tachyarrhythmia.Chief Supply Chain Officer ID - PIAYA LBASIC METABOLIC [id number] 22:43:00 Test Item Value Reference Range Interpretation [...] S NOT APPLICABLE FOR DIALYSIS PATIEN TS. Chief Supply Chain Officer ID - [id number] TIME/[id number] 22:40:00 Test Item Value Reference Range Interpretation Comments PROTIME (BEAKER) (test code = 15.3 seconds 11.9-14.2 H 759) INR (BEAKER) (test code = 370) 1.2 <=5.9 Effective 01/22/2019: PT Reference Range ChangeNew: 11.9-14.2 Previous: 11.7- 14.7RECOMMENDED COUMADIN/WARFARIN INR THERAPY RANGESSTANDARD DOSE: 2.0-3.0 Includes: PROPHYLAXIS for venous thrombosis, systemic embolization; TREATMENT for venous thrombosis and/or pulmonary embolus.HIGH RISK: Target INR is 2.5-3.5 for patients wiht mechanical heart valves.CBC W/PLT COUNT & AUTO [id number] 22:28:00 Test Item Value Reference Range Interpretation [...] PERCENT (BEAKER) (test code = 2801) POCT-GLUCOSE [id number] 20:03:00 Test Item Value Reference Range Interpretation Comments POC-GLUCOSE METER 261 mg/dL 70-110 H : TESTED A T [facility] 6720 (EMELYN) (test code = JESSIE BRICENO [place], 1538) 23627: Chief Supply Chain Officer/Techni briana ID = [id number] for ISREAL SOMERS
[2022-06-11] MEDS ORDERED: PHENYLEPHRINE 0.5% NOSE 15ML NAS ONE (12:36)
--- NOTE | 2022-06-11 13:50 | EDPHYS ---
Physician Documentation [facility] Name: Galdino Flores Age: 66 yrs Sex: Male : 1955 Arrival Date: 06/11/2022 Time: 12:17 Bed 18 Private MD: ILA Physician Sharan Delgado HPI: 06/11 12:27 This 66 yrs old Male presents to ER via Ambulatory with complaints of Nose Bleed. [facility] 12:27 The patient presents with a nose bleed, that is apparently anterior, from the right jmm nare. Onset: The symptoms/episode began/occurred acutely, 1 hour(s) ago. Modifying factors: The symptoms are alleviated by nothing. the symptoms are aggravated by nothing. 66-year-old male with a history of hyperlipidemia is currently taking Xarelto the presents emerged department with right nares nosebleed beginning approximate 1 hour prior to arrival. Patient attempted to use [place]-Synephrine and pressure with no relief.. Historical: - Allergies: 12:23 No Known Allergies; tw2 - Home Meds: 12:30 hydroxychloroquine 200 mg oral tab 1 tab twice daily [Active]; Celebrex 200 mg Oral cap tw2 1 cap once daily [Active]; Simponi 50 mg/0.5 ml 1 SUBQ once a month [Active]; Otezla 30 mg oral tab 1 tab daily [Active]; Astepro 137 mcg spray 1 puff ea nostril twice a day [Active]; tramadol 50 mg oral tab 1 tab every 6 hours [Active]; Promethazine Oral [Active]; Augmentin 500-125 mg Oral tab 1 tab prn [Active]; Vascepa 1 gram oral cap [Active]; Zinc Sulfate Oral [Active]; rosuvastatin 40 mg oral cpSP 1 cap once daily [Active]; glimepiride 4 mg Oral tab 1 tab once daily [Active]; losartan potassium (bulk) HCTZ miscellaneous powd daily [Active]; Xarelto 20 mg oral tab 1 tab once daily [Active]; naltrexone oral [Active]; [place] 5-325 mg Oral tab 1 tab every 6 hours [Active]; amlodipine 10 mg tab 1 tab once daily [Active]; Janumet 50-1,000 mg oral tab 1 tab 2 times per day [Active]; - PMHx: 12:23 psoriatic spondylitis; High Cholesterol; Anxiety; DEAF ON LEFT; Diabetes - NIDDM; GERD; tw2 Hypertension; - PSHx: 12:23 Right knee sx; tw2 - Immunization history:: Client reports receiving the 2nd dose of the Covid vaccine. - Social history:: Smoking status: Patient denies any tobacco usage or history of. Patient uses alcohol, on a daily basis. ROS: 12:27 Constitutional: Negative for fever, chills, and weight loss. jmm 12:27 ENT: Positive for nose bleed. 12:27 All other systems are negative. Exam: 12:27 Constitutional: This is a well developed, well nourished patient who is awake, alert, jmm and in no acute distress. Head/Face: atraumatic. Eyes: EOMI, no conjunctival erythema appreciated 12:27 Neck: Trachea midline, Supple Chest/axilla: Normal chest wall appearance and motion. Cardiovascular: Regular rate and rhythm. No edema appreciated Respiratory: Normal respirations, no respiratory distress appreciated Abdomen/GI: Non distended Back: Normal ROM Skin: General appearance color normal MS/ Extremity: Moves all extremities, no obvious deformities appreciated, no edema noted to the lower extremities Neuro: Awake and alert Psych: Behavior is normal, Mood is normal, Patient is cooperative and pleasant 12:27 ENT: Posterior pharynx: erythema, that is mild. 12:27 ENT: Nose: bleeding, is seen from the right nare, and is moderate. Vital Signs: 12:24 BP 123 / 79; Pulse 85; Resp 17; Temp 97.2(TE); Pulse Ox 98% on R/A; Weight 115.67 kg tw2 (R); Height 5 ft. 10 in. (177.80 cm); Pain 0/10; 12:24 Body Mass Index 36.59 (115.67 kg, 177.80 cm) tw2 Procedures: 13:48 Performed Rhino Rocket. Inserted in the Right Nostril. Bleeding has resolved. Patient sania tolerated the procedure well. . MDM: 12:27 Patient medically screened. m 13:48 Data reviewed: vital signs, nurses notes. Counseling: I had a detailed discussion with sania the patient and/or guardian regarding: the historical points, exam findings, and any diagnostic results supporting the discharge/admit diagnosis, the need for outpatient follow up, to return to the emergency department if symptoms worsen or persist or if there are any questions or concerns that arise at home. Administered Medications: No medications were administered Disposition Summary: 06/11/22 13:50 Discharge Ordered Location: Home [facility] Condition: Stable [facility] Diagnosis - Epistaxis [facility] Followup: [facility] - With: Mirtha Martin MD - When: 1 - 2 days - Reason: Recheck today's complaints, Continuance of care, Re-evaluation by your physician Discharge Instructions: - Discharge Summary Sheet [facility] - Nosebleed, Adult [facility] Forms: - Medication Reconciliation Form [facility] - Thank You Letter [facility] - Antibiotic Education [facility] - Prescription Opioid Use [facility] Prescriptions: - Clindamycin HCl 300 mg Oral Capsule - take 1 capsule by ORAL route every 6 hours for 10 days; 40 capsule; Refills: 0, [facility] Product Selection Permitted Signatures: Eliseo Diop PA PA Adela Guerrero, RN RN tw2
--- NOTE | 2022-06-11 13:50 | ER ---
Nurse's Notes [facility] Name: Galdino Flores Age: 66 yrs Sex: Male : 1955 Arrival Date: 06/11/2022 Time: 12:17 Bed 18 Private MD: Diagnosis: Epistaxis Presentation: 06/11 12:17 Chief complaint: Patient states: nose started bleeding about 1115. i blew my nose and i tw2 felt something give way and it just started bleeding. i am on blood thinners for afib. i have had a 30 minutes nose bleed before but this one just seems to not be slowing down. i did try afrin on a tissue to help clot it. Coronavirus screen: At this time, the client does not indicate any symptoms associated with coronavirus-19. Ebola Screen: Patient denies travel to an Ebola-affected area in the 21 days before illness onset. Initial Sepsis Screen: Does the patient meet any 2 criteria? No. Patient's initial sepsis screen is negative. Does the patient have a suspected source of infection? No. Patient's initial sepsis screen is negative. Risk Assessment: Do you want to hurt yourself or someone else? Patient reports no desire to harm self or others. Note nose clamp applied in triage. Onset of symptoms was June 11, 2022. 12:17 Method Of Arrival: Ambulatory tw2 12:17 Acuity: GABY 3 tw2 Triage Assessment: 12:24 General: Appears in no apparent distress. obese, Behavior is calm, cooperative, tw2 appropriate for age. Pain: Denies pain. EENT: Reports nose bleed. Neuro: Level of Consciousness is awake, alert, obeys commands, Oriented to person, place, time, situation. Historical: - Allergies: 12:23 No Known Allergies; tw2 - Home Meds: 12:30 hydroxychloroquine 200 mg oral tab 1 tab twice daily [Active]; Celebrex 200 mg Oral cap tw2 1 cap once daily [Active]; Simponi 50 mg/0.5 ml 1 SUBQ once a month [Active]; Otezla 30 mg oral tab 1 tab daily [Active]; Astepro 137 mcg spray 1 puff ea nostril twice a day [Active]; tramadol 50 mg oral tab 1 tab every 6 hours [Active]; Promethazine Oral [Active]; Augmentin 500-125 mg Oral tab 1 tab prn [Active]; Vascepa 1 gram oral cap [Active]; Zinc Sulfate Oral [Active]; rosuvastatin 40 mg oral cpSP 1 cap once daily [Active]; glimepiride 4 mg Oral tab 1 tab once daily [Active]; losartan potassium (bulk) HCTZ miscellaneous powd daily [Active]; Xarelto 20 mg oral tab 1 tab once daily [Active]; naltrexone oral [Active]; [place] 5-325 mg Oral tab 1 tab every 6 hours [Active]; amlodipine 10 mg tab 1 tab once daily [Active]; Janumet 50-1,000 mg oral tab 1 tab 2 times per day [Active]; - PMHx: 12:23 psoriatic spondylitis; High Cholesterol; Anxiety; DEAF ON LEFT; Diabetes - NIDDM; GERD; tw2 Hypertension; - PSHx: 12:23 Right knee sx; tw2 - Immunization history:: Client reports receiving the 2nd dose of the Covid vaccine. - Social history:: Smoking status: Patient denies any tobacco usage or history of. Patient uses alcohol, on a daily basis. Screenin:39 Abuse screen: Denies threats or abuse. Nutritional screening: No deficits noted. tw2 Tuberculosis screening: No symptoms or risk factors identified. Fall Risk None identified. Assessment: 12:30 General: SEE TRIAGE NOTE. bp 14:00 Reassessment: PT DC HOME AMBULATORY WITH FAMILY. bp Vital Signs: 12:24 BP 123 / 79; Pulse 85; Resp 17; Temp 97.2(TE); Pulse Ox 98% on R/A; Weight 115.67 kg tw2 (R); Height 5 ft. 10 in. (177.80 cm); Pain 0/10; 12:24 Body Mass Index 36.59 (115.67 kg, 177.80 cm) tw2 ED Course: 12:17 Patient arrived in ED. ja2 12:17 Arm band placed on. tw2 12:23 Triage completed. tw2 12:25 Paulie Cruz, RALPH is Primary Nurse. bp 12:25 Bed in low position. Call light in reach. Adult w/ patient. tw2 12:27 Eliseo Diop PA is PHCP. jm 12:27 Sharan Delgado MD is Attending Physician. jmm 13:50 Mirtha Martin MD is Referral Physician. [facility] 14:00 Assist provider with nosebleed control using rhino rocket placed for extensive packing bp needs, Bleeding from right nares. Performed by Eliseo WATTS. Patient did not have IV access during this emergency room visit. Administered Medications: No medications were administered Medication: 12:39 VIS not applicable for this client. tw2 Outcome: 13:50 Discharge ordered by . [facility] 14:00 Discharged to home ambulatory, with family. bp 14:00 Condition: stable 14:00 Discharge instructions given to patient, family, Instructed on discharge instructions, follow up and referral plans. medication usage, Demonstrated understanding of instructions, follow-up care, medications, Prescriptions given X 1. 14:01 Patient left the ED. bp Signatures: Eliseo Diop PA PA jmm Wise, Tara, RN RN tw2 Paulie Cruz, RN RN Tracey Gonzalez
[2022-06-11 14:05] VITALS: BP 123/79; TEMP 97.2; O2SAT 98
== END 2022-06-11 14:01 | disposition home or self-care (01) ==
LOC: ER 12:16
DX: R04.0 Epistaxis (principal); I10 Essential (primary) hypertension; E11.9 Type 2 diabetes mellitus without complications; Z79.01 Long term (current) use of anticoagulants
CPT/HCPCS: 30901; 99283